=== PATIENT | male | born 1960 | race Caucasian/White ===

== ENCOUNTER → 2020-10-06 | Outpatient (CLI) | payer OTHER ==
--- NOTE | 2020-10-07 05:21 | MR ---
EXAMINATION TYPE: MR shoulder RT wo con DATE OF EXAM: 10/06/2020 COMPARISON: 10/10/2013 HISTORY: Pain in right shoulder Multiplanar multiecho imaging of the right shoulder without contrast. There is severe narrowing of the subacromial joint space. There is retraction of the supraspinatus te ndon. There is very large shoulder joint effusion with septations. There is large subdeltoid effusion . The subscapularis tendon is thickened. There is fluid around the biceps tendon. The glenoid thierno a ppear intact. There is small degenerative cysts in the posterior glenoid. I see no evidence of a frac ture. IMPRESSION: Large rotator cuff tear with full retraction of the supraspinatus tendon. Moderately severe subacromi al joint space narrowing and impingement. Large complex shoulder joint effusion and subdeltoid effusi on. There is significant progression of abnormality compared to old exam. Osteoarthritic changes at t he glenohumeral joint with new subchondral cyst formation in the glenoid compared to old exam.
== END | disposition home or self-care (01) ==
LOC: RADMRIMAIN 13:15
PROVIDERS: ATTEND Orthopaedic Surgery
DX: M75.101 Unspecified rotator cuff tear or rupture of right shoulder, not specified as traumatic (principal); M25.411 Effusion, right shoulder; M85.611 Other cyst of bone, right shoulder

== ENCOUNTER 2022-12-08 14:30 | Inpatient (IN) | payer OTHER ==
[2022-12-08] MEDS ORDERED: SODIUM CHLORIDE 0.9% 1,000 ML IV ONE (15:19)
[2022-12-08 15:24] LABS: Appearance,Urine Clear (Clear); Bilirubin,Urine Negative (Negative); Blood,Urine Negative (Negative); Color,Urine Yellow; Glucose,Urine (UA) Negative (Negative); Ketones,Urine Negative (Negative); Leukocyte Esterase,Urine Negative (Negative); Mucus,Urine Moderate /hpf; Nitrite,Urine Negative (Negative); Protein,Urine 1+ (Negative); RBC,Urine <1 /hpf (0-5); Specific Gravity,Urine 1.036 (1.001-1.035); Squamous Epithelial Cell,Urine <1 /hpf (0-4); Urobilinogen,Urine <2.0 mg/dL (<2.0); WBC,Urine <1 /hpf (0-5)
[2022-12-08 15:43] LABS: Basophils % (A) 0 %; Eosinophils # (A) 0.1 k/uL (0-0.7); Eosinophils % (A) 1 %; HCT 48.6 % (39.0-53.0); HGB 16.4 gm/dL (13.0-17.5); Lymphocytes # (A) 1.3 k/uL (1.0-4.8); Lymphocytes % (A) 14 %; MCH 30.9 pg (25.0-35.0); MCHC 33.7 g/dL (31.0-37.0); MCV 91.8 fL (80.0-100.0); Mean Platelet Volume 8.3; Monocytes # (A) 0.5 k/uL (0-1.0); Monocytes % (A) 5 %; Neutrophils # (A) 7.3 k/uL (1.3-7.7); Neutrophils % (A) 78 %; Platelet Count 270 k/uL (150-450); RDW 14.2 % (11.5-15.5); WBC 9.3 k/uL (3.8-10.6)
[2022-12-08 15:57] LABS: ALT 21 U/L (4-49); African American GFR (CKD) >90 (>60 ml/min/1.73 sqM); Albumin 4.1 g/dL (3.5-5.0); Amylase <30 U/L (30-110); Anion Gap 8 mmol/L; Blood Urea Nitrogen 22 mg/dL (9-20); Calcium 9.3 mg/dL (8.4-10.2); Carbon Dioxide 25 mmol/L (22-30); Chloride 105 mmol/L (98-107); Glucose 102 mg/dL (74-99); Non-African American GFR(CKD) >90 (>60 ml/min/1.73 sqM); Sodium 138 mmol/L (137-145); Total Bilirubin 0.8 mg/dL (0.2-1.3); Total Protein 6.6 g/dL (6.3-8.2)
[2022-12-08 16:09] LABS: Potassium 4.5 mmol/L (3.5-5.1)
[2022-12-08 16:10] LABS: AST 29 U/L (17-59); Alkaline Phosphatase 51 U/L (38-126)
[2022-12-08] MEDS ORDERED: HYDROmorphone 1 MG/ML 1 ML SYRINGE IVP STA ×2 (16:20→17:34)
--- NOTE | 2022-12-08 16:26 | ED ---
General Adult HPI - General Chief complaint: Back Pain/Injury Stated complaint: Back pain Time Seen by Provider: 12/08/22 15:50 Source: patient, family, RN notes reviewed Mode of arrival: ambulatory Limitations: no limitations - History of Present Illness Initial comments: Patient is a pleasant 62-year-old male presenting to the emergency department with concerns with right lower back and flank and abdominal pain. Onset of symptoms was several days ago. Pain increases with movement. Patient has had difficulty getting comfortable. Patient has been using heating pad to the right side of his back. Patient has difficulty urinating secondary to getting comfortable to urinate. Patient denies any incontinence. No bowel incontinence. No leg weakness or loss of sensation. Patient does have history of previous back problems and surgery. - Related Data Home Medications Medication Instructions Recorded Confirmed HYDROcodone/APAP 10-325MG [Cooper 1 tab PO Q6H PRN 03/15/15 05/02/15 10-325] Multivitamin [Men's Multi-Vitamin] 1 each PO DAILY 03/15/15 05/02/15 Previous Rx's Medication Instructions Recorded Dicyclomine [Bentyl] 20 mg PO QID #20 tablet 05/02/15 Ondansetron Odt [Zofran ODT] 4 mg PO Q8HR PRN #15 tab 05/02/15 Allergies Allergy/AdvReac Type Severity Reaction Status Date / Time ciprofloxacin [From Cipro] Allergy Rash/Hives Verified 12/08/22 15:01 ciprofloxacin HCl Allergy Rash/Hives Verified 12/08/22 15:01 [From Cipro] Review of Systems ROS Statement: Those systems with pertinent positive or pertinent negative responses have been documented in the HPI. ROS Other: All systems not noted in ROS Statement are negative. Constitutional: Denies: fever Eyes: Denies: eye pain ENT: Denies: ear pain Respiratory: Denies: cough Cardiovascular: Denies: chest pain Gastrointestinal: Reports: as per HPI Musculoskeletal: Reports: back pain Past Medical History Past Medical History: Musculoskeletal Disorder, Osteoarthritis (OA) Additional Past Medical History / Comment(s): BLOOD IN STOOL-AFTER BM- SOMETIMES JUST BLOOD IN TOILET, RT ROTATOR CUFF TORN IN 3 PLACES-LIMITED ROM, ARTHRITIS IN SHOULDERS & BACK, LOWER BACK PAIN History of Any Multi-Drug Resistant Organisms: None Reported Past Surgical History: Back Surgery Past Anesthesia/Blood Transfusion Reactions: No Reported Reaction Past Psychological History: Anxiety Past Alcohol Use History: None Reported Past Drug Use History: None Reported - Past Family History Mother Family Medical History: Cancer Additional Family Medical History / Comment(s): BREAST CA , HEART SURGERY LAST YEAR Father Additional Family Medical History / Comment(s): BLOOD CLOTS YRS AGO Brother(s) Additional Family Medical History / Comment(s): BACK PROBLEMS General Exam Limitations: no limitations General appearance: alert Head exam: Present: normocephalic Eye exam: Present: normal appearance Neck exam: Present: normal inspection Respiratory exam: Present: normal lung sounds bilaterally Cardiovascular Exam: Present: regular rate, normal rhythm Expanded Peripheral pulses: 2+: Posterior Tibialis (R), Posterior Tibialis (L), Dorsalis Pedis (R), Dorsalis Pedis (L) GI/Abdominal exam: Present: soft, tenderness (Mild tenderness, mostly right lower.). Absent: distended, rebound, rigid, pulsatile mass, hernia Extremities exam: Present: normal inspection Back exam: Absent: tenderness Neurological exam: Present: alert. Absent: motor sensory deficit Psychiatric exam: Present: normal affect, normal mood Skin exam: Present: other (Erythema right lower back were patient states he has had the heating pad. Erythema consistent with first degree burn.) Course Vital Signs 12/08/22 14:57 Temperature 98.2 F Pulse Rate 68 Respiratory 18 Rate Blood Pressure 131/72 O2 Sat by Pulse 97 Oximetry Medical Decision Making - Medical Decision Making Was pt. sent in by a medical professional or institution (, PA, VOLCANOLOGY TEACHER, urgent care, hospital, or halfway...) When possible be specific @ -No Did you speak to anyone other than the patient for history (EMS, parent, family, police, friend...)? What history was obtained from this source @ - provides majority of history and tends to speak for patient. Patient is uncomfortable and agreeable with this. Did you review nursing and triage notes (agree or disagree)? Why? @ -I reviewed and agree with nursing and triage notes Were old charts reviewed (outside hosp., previous admission, EMS record, old EKG, old radiological studies, urgent care reports/EKG's, halfway records)? Report findings @ -Chart reviewed from [facility] earlier this week Differential Diagnosis (chest pain, altered mental status, abdominal pain women, abdominal pain men, vaginal bleeding, weakness, fever, dyspnea, syncope, headache, dizziness, GI bleed, back pain, seizure, CVA, palpatations, mental health, musculoskeletal)? @ -Differential Abdominal Pain Men: Appendicitis, cholecystitis, diverticulosis, ischemic bowel, pancreatitis, hepatitis, UTI, gastroenteritis, AAA, incarcerated hernia, bowel obstruction, constipation, inflammatory bowel, hepatitis, peptic ulcer disease, splenic infarction, perforated viscus, testicular torsion, this is not meant to be an all-inclusive list EKG interpreted by me (3pts min.). @ -As above X-rays interpreted by me (1pt min.). @ -None done CT interpreted by me (1pt min.). @ -Report reviewed U/S interpreted by me (1pt. min.). @ -None done What testing was considered but not performed or refused? (CT, X-rays, U/S, labs)? Why? @ -None What meds were considered but not given or refused? Why? @ -None Did you discuss the management of the patient with other professionals (professionals i.e. , PA, VOLCANOLOGY TEACHER, lab, RT, psych nurse, health and social care teacher, utilization management um nurse, teacher, fire prevention officer, manager case)? Give summary @ -Case was discussed with practitioner jason Zuniga who will admit For hospital call. Was smoking cessation discussed for >3mins.? @ -No Was critical care preformed (if so, how long)? @ -No Were there social determinants of health that impacted care today? How? (Homelessness, low income, unemployed, alcoholism, drug addiction, transpor tation, low edu. Level, literacy, decrease access to med. care, usp, rehab)? @ -No Was there de-escalation of care discussed even if they declined (Discuss DNR or withdrawal of care, Hospice)? DNR status @ -No What co-morbidities impacted this encounter? (DM, HTN, Smoking, COPD, CAD, Cancer, CVA, ARF, Chemo, Hep., AIDS, mental health diagnosis, sleep apnea, morbid obesity)? @ -None Was patient admitted / discharged? Hospital course, mention meds given and route, prescriptions, significant lab abnormalities, going to OR and other pertinent info. @ -Patient reevaluated and still comfortable. Patient and family updated on results and plan. Patient will be provided Horvath catheter to see if this helps with his discomfort. Patient will benefit with consults with surgery and orthopedics. Undiagnosed new problem with uncertain prognosis? @ -No Drug Therapy requiring intensive monitoring for toxicity (Heparin, Nitro, Insulin, Cardizem)? @ -No Were any procedures done? @ -No Diagnosis/symptom? @ -Back pain, abdominal pain Acute, or Chronic, or Acute on Chronic? @ -Acute, acute Uncomplicated (without systemic symptoms) or Complicated (systemic symptoms)? @ -default Side effects of treatment? @ -No Exacerbation, Progression, or Severe Exacerbation? @ -No Poses a threat to life or bodily function? How? (Chest pain, [place], [place], pneumonia, PE, COPD, DKA, ARF, appy, cholecystitis, CVA, Diverticulitis, Homicidal, Suicidal, threat to staff... and all critical care pts) @ -No - Lab Data Result diagrams: 12/08/22 15:19 12/08/22 15:19 Lab Results 12/08/22 12/08/22 12/08/22 Range/Units 15:04 15:19 15:19 WBC 9.3 (3.8-10.6) k/uL RBC 5.30 (4.30-5.90) m/uL Hgb 16.4 (13.0-17.5) gm/dL Hct 48.6 (39.0-53.0) % MCV 91.8 (80.0-100.0) fL MCH 30.9 (25.0-35.0) pg MCHC 33.7 (31.0-37.0) g/dL RDW 14.2 (11.5-15.5) % Plt Count 270 (150-450) k/uL MPV 8.3 Neutrophils % 78 % Lymphocytes % 14 % Monocytes % 5 % Eosinophils % 1 % Basophils % 0 % Neutrophils # 7.3 (1.3-7.7) k/uL Lymphocytes # 1.3 (1.0-4.8) k/uL Monocytes # 0.5 (0-1.0) k/uL Eosinophils # 0.1 (0-0.7) k/uL Basophils # 0.0 (0-0.2) k/uL Sodium 138 (137-145) mmol/L Potassium 4.5 (3.5-5.1) mmol/L Chloride 105 (98-107) mmol/L Carbon Dioxide 25 (22-30) mmol/L Anion Gap 8 mmol/L BUN 22 H (9-20) mg/dL Creatinine 0.70 (0.66-1.25) mg/dL Est GFR (CKD-EPI)AfAm >90 (>60 ml/min/1.73 sqM) Est GFR (CKD-EPI)NonAf >90 (>60 ml/min/1.73 sqM) Glucose 102 H (74-99) mg/dL Plasma Lactic Acid Raymond (0.7-2.0) mmol/L Calcium 9.3 (8.4-10.2) mg/dL Total Bilirubin 0.8 (0.2-1.3) mg/dL AST 29 (17-59) U/L ALT 21 (4-49) U/L Alkaline Phosphatase 51 (38-126) U/L Total Protein 6.6 (6.3-8.2) g/dL Albumin 4.1 (3.5-5.0) g/dL Amylase <30 L (30-110) U/L Urine Color Yellow Urine Appearance Clear (Clear) Urine pH 6.0 (5.0-8.0) Ur Specific [place] 1.036 H (1.001-1.035) Urine Protein 1+ H (Negative) Urine Glucose (UA) Negative (Negative) Urine Ketones Negative (Negative) Urine Blood Negative (Negative) Urine Nitrite Negative (Negative) Urine Bilirubin Negative (Negative) Urine Urobilinogen <2.0 (<2.0) mg/dL Ur Leukocyte Esterase Negative (Negative) Urine RBC <1 (0-5) /hpf Urine WBC <1 (0-5) /hpf Ur Squamous Epith Cells <1 (0-4) /hpf Urine Mucus Moderate H (None) /hpf 12/08/22 Range/Units 15:19 WBC (3.8-10.6) k/uL RBC (4.30-5.90) m/uL Hgb (13.0-17.5) gm/dL Hct (39.0-53.0) % MCV (80.0-100.0) fL MCH (25.0-35.0) pg MCHC (31.0-37.0) g/dL RDW (11.5-15.5) % Plt Count (150-450) k/uL MPV Neutrophils % % Lymphocytes % % Monocytes % % Eosinophils % % Basophils % % Neutrophils # (1.3-7.7) k/uL Lymphocytes # (1.0-4.8) k/uL Monocytes # (0-1.0) k/uL Eosinophils # (0-0.7) k/uL Basophils # (0-0.2) k/uL Sodium (137-145) mmol/L Potassium (3.5-5.1) mmol/L Chloride (98-107) mmol/L Carbon Dioxide (22-30) mmol/L Anion Gap mmol/L BUN (9-20) mg/dL Creatinine (0.66-1.25) mg/dL Est GFR (CKD-EPI)AfAm (>60 ml/min/1.73 sqM) Est GFR (CKD-EPI)NonAf (>60 ml/min/1.73 sqM) Glucose (74-99) mg/dL Plasma Lactic Acid Raymond 1.4 (0.7-2.0) mmol/L Calcium (8.4-10.2) mg/dL Total Bilirubin (0.2-1.3) mg/dL AST (17-59) U/L ALT (4-49) U/L Alkaline Phosphatase (38-126) U/L Total Protein (6.3-8.2) g/dL Albumin (3.5-5.0) g/dL Amylase (30-110) U/L Urine Color Urine Appearance (Clear) Urine pH (5.0-8.0) Ur Specific [place] (1.001-1.035) Urine Protein (Negative) Urine Glucose (UA) (Negative) Urine Ketones (Negative) Urine Blood (Negative) Urine Nitrite (Negative) Urine Bilirubin (Negative) Urine Urobilinogen (<2.0) mg/dL Ur Leukocyte Esterase (Negative) Urine RBC (0-5) /hpf Urine WBC (0-5) /hpf Ur Squamous Epith Cells (0-4) /hpf Urine Mucus (None) /hpf Disposition Clinical Impression: Back pain, Abdominal pain Disposition: ADMITTED IP TO THIS [facility] Is patient prescribed a controlled substance at d/c from ED?: No Referrals: None,Stated [Primary Care Provider] - 1-2 days Time of Disposition: 17:29
--- NOTE | 2022-12-08 17:19 | CT ---
EXAMINATION TYPE: CT abdomen pelvis w con DATE OF EXAM: 12/08/2022 COMPARISON: NONE HISTORY: 62-year-old male RLQ pain and right flank pain x1 month TECHNIQUE: Contiguous axial scanning of the abdomen and pelvis following administration of 100 ml Iso kristie 300 IV contrast. Delayed images through the kidneys and coronal/sagittal reconstructions perform ed. CT DLP: 1313.6 mGycm Automated exposure control for dose reduction was used. FINDINGS: The heart is normal size without pericardial effusion. Lung bases clear without pleural eff usion. Liver mildly enlarged at 18.4 cm. Portal venous system is patent. No biliary ductal dilatation. Hydropic gallbladder at 5.0 cm wide but without any surrounding inflammation. Probably due to fasting state. No dilated small bowel, free fluid, or free air. Tiny fatty umbilical hernia. A 2.1 cm subcutaneous lesion just deep to the skin surface along the anterior right lower quadrant ca n be correlated with physical exam findings. Possibly related to subcutaneous injections. Normal appendix. There is mild to moderate stool burden. There seems to be some circumferential wall thickening along the sigmoid colon but without any surrou nding fat stranding. Adrenal glands, kidneys, spleen, and pancreas within normal. No mesenteric or retroperitoneal lymphadenopathy. Prominent distention of the urinary bladder. Prostate gland enlarged at 5.6 cm wide. Some central calcifications are noted. Right-sided pelvic phl ebolith. No abnormal fluid collection in the pelvis or pelvic lymphadenopathy. Bones: Advanced degenerative disc disease lumbar spine. Hypertrophic facet arthropathy mid to lower l umbar spine. A 1.3 cm calcification located in the subcutaneous adipose layer just anterior to the right iliac cre st, axial image 73, probably sequela of prior injury. IMPRESSION: 1. A 1.3 CM CALCIFICATION IN THE SUBCUTANEOUS FAT LAYER JUST ANTERIOR TO THE RIGHT ILIAC CREST. PROBA ARGENIS HETEROTOPIC OSSIFICATION A SEQUELA OF PRIOR INFLAMMATION. CORRELATE FOR ANY POINT TENDERNESS H ERE. 2. ADDITIONAL 2.1 CM SUBCUTANEOUS LESION ANTERIOR RIGHT LOWER QUADRANT JUST DEEP TO THE SKIN SURFACE MAY RELATE TO PREVIOUS SUBCUTANEOUS INJECTION. AGAIN, CORRELATE WITH PHYSICAL EXAM FINDINGS. 3. MILD CIRCUMFERENTIAL WALL THICKENING INVOLVING THE SIGMOID COLON. CONSIDER A NONSPECIFIC MILD INFE CTIOUS OR INFLAMMATORY COLITIS. 4. HYDROPIC GALLBLADDER LIKELY DUE TO FASTING STATE. NO ASSOCIATED INFLAMMATION. 5. NORMAL APPENDIX. NO NEPHROLITHIASIS OR HYDRONEPHROSIS.
[2022-12-08] MEDS ORDERED: HYDROmorphone 0.5 MG/0.5 ML SYRINGE IVP PRN (17:35)
[2022-12-08] MEDS ORDERED: NALOXONE 0.4 MG/ML 1 ML VIAL IV PRN (17:35)
[2022-12-08] MEDS: SODIUM CHLORIDE 0.9% 1,000 ML IV SCH (17:53)
[2022-12-08] MEDS: HYDROmorphone 1 MG/ML 1 ML SYRINGE IVP PRN ×2 (21:00→23:49)
[2022-12-09] MEDS: SODIUM CHLORIDE 0.9% 1,000 ML IV SCH ×2 (01:43→12:41)
[2022-12-09] MEDS: HYDROmorphone 1 MG/ML 1 ML SYRINGE IVP PRN ×3 (03:02→08:53)
[2022-12-09] MEDS: MELATONIN 5 MG TABLET PO PRN ×2 (03:05→23:01)
[2022-12-09 08:57] LABS: Basophils # (A) 0.02 X 10*3/uL (0.00-0.10); Basophils % (A) 0.2 %; Eosinophils # (A) 0.23 X 10*3/uL (0.04-0.35); Eosinophils % (A) 2.7 %; HCT 44.8 % (39.6-50.0); HGB 15.2 d/dL (13.0-17.0); Lymphocytes # (A) 2.54 X 10*3/uL (0.90-5.00); Lymphocytes % (A) 29.4 %; MCH 30.3 pg (27.0-32.0); MCHC 33.9 d/dL (32.0-37.0); MCV 89.2 FL (80.0-97.0); Mean Platelet Volume 10.5 FL (9.5-12.2); Monocytes # (A) 0.69 X 10*3/uL (0.20-1.00); NRBC Per 100 WBC 0 X 10*3/uL (0.00-0.01); Neutrophils # (A) 5.15 X 10*3/uL (1.80-7.70); Neutrophils % (A) 59.6 %; Platelet Count 282 X 10*3/uL (140-440); RBC 5.02 X 10*6/uL (4.40-5.60); RDW 14.2 % (11.5-14.5); WBC 8.64 X 10*3/uL (4.50-10.00)
[2022-12-09 09:27] LABS: ALT 17 U/L (10-49); AST 15 U/L (14-35); Albumin 3.9 d/dL (3.8-4.9); Albumin/Globulin Ratio 2.05 Ratio (1.60-3.17); Alkaline Phosphatase 62 U/L (41-126); BUN/Creat Ratio 22.14 Ratio (12.00-20.00); Blood Urea Nitrogen 15.5 mg/dL (9.0-27.0); Calcium 9.2 mg/dL (8.7-10.3); Carbon Dioxide 24.4 mmol/L (21.6-31.8); Chloride 104 mmol/L (96-109); Globulin 1.9 d/dL (1.6-3.3); Glucose 82 mg/dL (70-110); Potassium 4.2 mmol/L (3.5-5.5); Sodium 140 mmol/L (135-145); Total Bilirubin 0.4 mg/dL (0.3-1.2); Total Protein 5.8 d/dL (6.2-8.2)
--- NOTE | 2022-12-09 10:50 | P.GSCN ---
History of Present Illness Consult date: 12/09/22 Reason for Consult: Colitis History of present illness: 62-year-old male admitted with complaints of back pain. Patient states that he was shoveling about 2 weeks ago and developed sudden back pain. Seemed to be gradually improving however he then lifted something off of the stairs one week ago and has been having significant pain since then. He went to the ER at [facility] one week ago. He apparently has surgical history with Dr. Castillo. They have been asked is to see him. He was having some mild right-sided abdominal swelling he describes. It has improved. He feels a small nodule in the abdominal wall fat its been there for the last 10 years or so that is unchanged right lower quadrant. He had a CAT scan performed showing a mildly distended gallbladder as well as mild thickening of the colon wall which is n onspecific. No rectal bleeding or melena. Having normal bowel movements. White blood cell count and hemoglobin normal. Review of Systems The patient denies any acute changes in vision or hearing, no dysphagia or odynophagia, no chest pain or shortness of breath, no dysuria or hematuria, no headache, no runny nose, no rectal bleeding or melena, no unexplained weight l oss Past Medical History Past Medical History: Musculoskeletal Disorder, Osteoarthritis (OA) Additional Past Medical History / Comment(s): BLOOD IN STOOL-AFTER BM- SOMETIMES JUST BLOOD IN TOILET, RT ROTATOR CUFF TORN IN 3 PLACES-LIMITED ROM, ARTHRITIS IN SHOULDERS & BACK, LOWER BACK PAIN, DDD, bone spurs in spine History of Any Multi-Drug Resistant Organisms: None Reported Past Surgical History: Back Surgery Additional Past Surgical History / Comment(s): hand surgery Past Anesthesia/Blood Transfusion Reactions: No Reported Reaction Past Psychological History: Anxiety Smoking Status: Never smoker Past Alcohol Use History: None Reported Additional Past Alcohol Use History / Comment(s): IS SMOKER AND IS TRYING TO QUIT Past Drug Use History: None Reported - Past Family History Mother Family Medical History: Cancer Additional Family Medical History / Comment(s): BREAST CA , HEART SURGERY LAST YEAR Father Additional Family Medical History / Comment(s): BLOOD CLOTS YRS AGO Brother(s) Additional Family Medical History / Comment(s): BACK PROBLEMS Medications and Allergies Home Medications Medication Instructions Recorded Confirmed Type Meloxicam [Mobic] 15 mg PO DAILY 12/08/22 12/08/22 History Testosterone Cypionate 200 mg IM Q14D 12/08/22 12/08/22 History [Depo-Testosterone] Allergies Allergy/AdvReac Type Severity Reaction Status Date / Time ciprofloxacin [From Cipro] Allergy Rash/Hives Verified 12/08/22 17:58 ciprofloxacin HCl Allergy Rash/Hives Verified 12/08/22 17:58 [From Cipro] Surgical - Exam Vital Signs Temp Pulse Resp BP Pulse Ox 98.2 F 68 18 131/72 97 12/08/22 14:57 12/08/22 14:57 12/08/22 14:57 12/08/22 14:57 12/08/22 14:57 Physical exam: General: Well-developed, well-nourished HEENT: Normocephalic, sclerae nonicteric Abdomen: Nontender, nondistended Extremities: No edema Neuro: Alert and oriented Results - Labs 12/09/22 05:21 12/09/22 05:21 Abnormal Lab Results - Last 24 Hours (Table) 12/08/22 12/08/22 12/09/22 Range/Units 15:04 15:19 05:21 BUN 22 H (9-20) mg/dL BUN/Creatinine Ratio 22.14 H (12.00-20.00) Ratio Glucose 102 H (74-99) mg/dL Total Protein 5.8 L (6.2-8.2) d/dL Amylase <30 L (30-110) U/L Ur Specific [place] 1.036 H (1.001-1.035) Urine Protein 1+ H (Negative) Urine Mucus Moderate H (None) /hpf Diabetes panel 12/08/22 12/09/22 Range/Units 15:19 05:21 Sodium 138 140 (137-145) mmol/L Potassium 4.5 4.2 (3.5-5.1) mmol/L Chloride 105 104 (98-107) mmol/L Carbon Dioxide 25 24.4 (22-30) mmol/L BUN 22 H 15.5 (9-20) mg/dL Creatinine 0.70 0.7 (0.66-1.25) mg/dL Glucose 102 H 82 (74-99) mg/dL Calcium 9.3 9.2 (8.4-10.2) mg/dL AST 29 15 (17-59) U/L ALT 21 17 (4-49) U/L Alkaline Phosphatase 51 62 (38-126) U/L Total Protein 6.6 5.8 L (6.3-8.2) g/dL Albumin 4.1 3.9 (3.5-5.0) g/dL Calcium panel 12/08/22 12/09/22 Range/Units 15:19 05:21 Calcium 9.3 9.2 (8.4-10.2) mg/dL Albumin 4.1 3.9 (3.5-5.0) g/dL Pituitary panel 12/08/22 12/09/22 Range/Units 15:19 05:21 Sodium 138 140 (137-145) mmol/L Potassium 4.5 4.2 (3.5-5.1) mmol/L Chloride 105 104 (98-107) mmol/L Carbon Dioxide 25 24.4 (22-30) mmol/L BUN 22 H 15.5 (9-20) mg/dL Creatinine 0.70 0.7 (0.66-1.25) mg/dL Glucose 102 H 82 (74-99) mg/dL Calcium 9.3 9.2 (8.4-10.2) mg/dL Adrenal panel 12/08/22 12/09/22 Range/Units 15:19 05:21 Sodium 138 140 (137-145) mmol/L Potassium 4.5 4.2 (3.5-5.1) mmol/L Chloride 105 104 (98-107) mmol/L Carbon Dioxide 25 24.4 (22-30) mmol/L BUN 22 H 15.5 (9-20) mg/dL Creatinine 0.70 0.7 (0.66-1.25) mg/dL Glucose 102 H 82 (74-99) mg/dL Calcium 9.3 9.2 (8.4-10.2) mg/dL Total Bilirubin 0.8 0.4 (0.2-1.3) mg/dL AST 29 15 (17-59) U/L ALT 21 17 (4-49) U/L Alkaline Phosphatase 51 62 (38-126) U/L Total Protein 6.6 5.8 L (6.3-8.2) g/dL Albumin 4.1 3.9 (3.5-5.0) g/dL Assessment and Plan (1) Abdominal pain Narrative/Plan: 62-year-old male with abdominal discomfort. This seems to be radiating from the back pain. This is improved at this time. CAT scan reviewed. No further surgical plans at this time. We'll discuss further with the patient regarding timing of his last colonoscopy. Await orthospine evaluation. Current Visit: Yes Status: Acute Code(s): R10.9 - UNSPECIFIED ABDOMINAL PAIN SNOMED Code(s): 50618352
--- NOTE | 2022-12-09 11:32 | P.PN ---
Progress Note - Text Progress Note Date: 12/09/22 Dr. Roche was consulted due to low back pain. Patient was seen at bedside this morning and states that he is a patient of Dr. Castillo's. Patient states that Dr. Castillo performed surgery on his back in 2009. Patient thinks at L4 due to a herniated disc. We have consulted Dr. Castillo for further care.
[2022-12-09] MEDS: KETOROLAC 15 MG/ML 1 ML VIAL IVP PRN ×2 (11:49→18:06)
[2022-12-09] MEDS: HYDROcodone/APAP 5-325MG 1 EACH TAB PO PRN ×2 (13:05→19:37)
[2022-12-09] MEDS: predniSONE 20 MG TAB PO SCH (13:19)
[2022-12-09] MEDS: SENNOSIDES 8.6 MG TAB PO SCH ×2 (13:19→19:38)
--- NOTE | 2022-12-09 13:51 | P.CNOR ---
History of Present Illness - [facility] Consult date: 12/09/22 Consult reason: low back pain History of present illness: Patient is a 62-year-old male who presents to the emergency room due to low back pain radiating around his leg toward his abdomen. Patient says that the pain has been worsening over the past week to the point he is unable to move and get out of bed. Apparently about a week and a half ago the patient was shoveling some dirt and strain and hurt his back. He is having pain and then several days later he was carrying heavy tools up some stairs and had felt like his back went out. Since then he has been unable to move around well and presented to the emergency room yesterday. Patient says the pain is around his right sided lower back radiates around towards his flank. He denies any nausea vomiting. He denies any weakness in his lower extremity is. He denies any numbness tingling or burning in his legs. He says his legs are doing fine. He denies any changes in bowel bladder function. He denies any fevers or chills. He denies any changes in his urine. Over 10 years ago we had seen him in regards to his low back pain and lower extremity pain. At a point he had been found have a disc herniation with stenosis and radiculopathy. He underwent laminectomy discectomy and says that he did very well over the past decade. Review of Systems As stated per HPI. He denies any radiculopathy or numbness tingling in his lower extremity. Denies any weakness in his lower extremities. Denies a change in bowel bladder function. He says he can't get up and move around because his back hurts too much. He denies any chest pain short of breath. Denies nausea or vomiting or fevers. Past Medical History Past Medical History: Musculoskeletal Disorder, Osteoarthritis (OA) Additional Past Medical History / Comment(s): BLOOD IN STOOL-AFTER BM- SOMETIMES JUST BLOOD IN TOILET, RT ROTATOR CUFF TORN IN 3 PLACES-LIMITED ROM, ARTHRITIS IN SHOULDERS & BACK, LOWER BACK PAIN, DDD, bone spurs in spine, history of laminectomy decompression L4 5 about 10 years ago History of Any Multi-Drug Resistant Organisms: None Reported Past Surgical History: Back Surgery Additional Past Surgical History / Comment(s): hand surgery Past Anesthesia/Blood Transfusion Reactions: No Reported Reaction Past Psychological History: Anxiety Smoking Status: Never smoker Past Alcohol Use History: None Reported Additional Past Alcohol Use History / Comment(s): IS SMOKER AND IS TRYING TO QUIT Past Drug Use History: None Reported - Past Family History Mother Family Medical History: Cancer Additional Family Medical History / Comment(s): BREAST CA , HEART SURGERY LAST YEAR Father Additional Family Medical History / Comment(s): BLOOD CLOTS YRS AGO Brother(s) Additional Family Medical History / Comment(s): BACK PROBLEMS Medications and Allergies Home Medications Medication Instructions Recorded Confirmed Type Meloxicam [Mobic] 15 mg PO DAILY 12/08/22 12/08/22 History Testosterone Cypionate 200 mg IM Q14D 12/08/22 12/08/22 History [Depo-Testosterone] Allergies Allergy/AdvReac Type Severity Reaction Status Date / Time ciprofloxacin [From Cipro] Allergy Rash/Hives Verified 12/08/22 17:58 ciprofloxacin HCl Allergy Rash/Hives Verified 12/08/22 17:58 [From Cipro] Physical Examination Osteopathic Statement: *. No significant issues noted on an osteopathic structural exam other than those noted in the History and Physical/Consult. - L Spine: dermatomal strength & reflexes right Strength: hip flexion: 5/5 (His bilateral lower extremities have 5 out of 5 strength dorsal flexion plantarflexion and EHL. He can lift his legs up off the bed independently. No pain at his hips with rotation flexion extension.) Strength: hip extension: 5/5 (Lower extremity sensory intact. No saddle paresthesias) Strength: knee flexion: 5/5 (At his back he has a well-healed midline incision. There is no erythema there is no swelling) Results - Labs Labs: Abnormal Lab Results - Last 24 Hours (Table) 12/08/22 12/08/22 12/09/22 Range/Units 15:04 15:19 05:21 BUN 22 H (9-20) mg/dL BUN/Creatinine Ratio 22.14 H (12.00-20.00) Ratio Glucose 102 H (74-99) mg/dL Total Protein 5.8 L (6.2-8.2) d/dL Amylase <30 L (30-110) U/L Ur Specific [place] 1.036 H (1.001-1.035) Urine Protein 1+ H (Negative) Urine Mucus Moderate H (None) /hpf H & H 12/08/22 12/09/22 Range/Units 15:19 05:21 Hgb 16.4 15.2 (13.0-17.5) gm/dL Hct 48.6 44.8 (39.0-53.0) % Result Diagrams: 12/09/22 05:21 12/09/22 05:21 - Diagnostic results CT Scan - lumbar: report reviewed, image reviewed (Chest abdomen and pelvis CT scans reviewed in terms of his lumbar spine. He has disc degeneration L3 4 L4 5 L5-S1. There seems to be prior laminectomy L4 5. There is some callus condition of disc. There is no acute fracture. There is no obvious instability) Assessment and Plan Assessment: Acute low back pain with myofascial strain possible annular fissure No evidence of radiculopathy or lower extremity neurologic change Low back pain with radiation towards his right flank and abdomen History of laminectomy over 10 years ago L4 5 with good result Plan: Acute low back pain with myofascial strain possible annular fissure No evidence of radiculopathy or lower extremity neurologic change Low back pain with radiation towards his right flank and abdomen History of laminectomy over 10 years ago L4 5 with good result The patient has new acute symptoms over the past week with his low back radiating pain towards the right flank and abdomen. The workup did not show any obvious issues at his abdomen per surgery nor does report show any evidence of kidney stones. The patient has significant degenerative changes at his low back L4 5 where he had prior surgery. He is not having any radiculopathy or neurologic change in his lower extremities. I do not see any evidence of instability at his back or fracture. Patient may have a new annular fissure causing him the severe pain over this past week. He is having great difficulty with any sort of mobilization and I t hink that he can have improvement with dedicated conservative treatment. I would like to see if he can mobilize better with physical therapy. He has a Horvath catheter in place which we will discontinue. I think that he can do well with course of steroid medication and with started on oral steroids 60 mg daily which can be tapered down to a 40 and then 20 over the next couple of weeks. He has been prescribed muscle relaxer and pain medication which is appropriate. I think that he could have some benefit with interventional pain management. He could consider trigger point injections, epidural steroid injections or facet injections as necessary and we will consult them as well. I discussed this with how staff and answered the patient's questions to best my ability. I think it is okay for him to mobilize from a orthopedic spine standpoint. If he is continuing to have severe issues we may have to get further imaging or reassessment with surgery.
[2022-12-09] MEDS: CYCLOBENZAPRINE 5 MG TAB PO PRN (18:03)
--- NOTE | 2022-12-09 18:36 | P.HPIM ---
History of Present Illness H&P Date: 12/09/22 This is a pleasant 62-year-old male who presented to the emergency department with severe back pain along with abdominal pain. Patient does not have a primary care provider and reports as a past medical history of musculoskeletal disorder with osteoarthritis, anxiety with a past medical history of laminectomy with decompression of L4-[address] Castillo about 10 years ago. Patient also reports to degenerative disc disease. Patient denies smoking and denies alcohol use and denies any illicit drug use. Patient reports he was having significant back pain that has progressively gotten worse making it difficult to ambulate. Patient reports he was shoveling a few weeks prior and also had recently been lifting heavy objects and the pain intensified. Patient reports he was at [facility] last week and received imaging and was sent home. Patient continued to have pain that had worsened and now reports unable to walk. Patient also reports difficulty with urinating due to the pain. Patient denies any loss of bowel or bladder incontinence. Patient also was having some abdominal pain most likely radiating from the back pain. Patient was admitted with orthopedic consultation as well as general surgery consultation. I have reviewed and within normal limits. Review Of Systems: Constitutional: No fever, no chills, no night sweats. No weight change. No weakness, fatigue or lethargy. No daytime sleepiness. EENT: No headache. No blurred vision or double vision, no loss of vision. No loss of Hearing, no ringing in the ears, no dizziness. No nasal drainage or congestion. No epistaxis. No sore throat. Lungs: No shortness of breath, cough, no sputum production. No wheezing. Cardiovascular: No chest pain, no lower extremity edema. No palpitations. No paroxysmal nocturnal dyspnea. No orthopnea. No lightheadedness or dizziness. No syncopal episodes. Abdominal: Reported abdominal pain that has resolved. No nausea, vomiting. No diarrhea. No constipation. No bloody or tarry stools.. No loss of appetite. Genitourinary: No dysuria, increased frequency, urgency. No urinary retention. Reported difficulty with urination due to significant back pain and difficulty getting comfortable Musculoskeletal: No myalgias. No muscle weakness, no gait dysfunction, no isabel quent falls. No back pain. No neck pain. Integumentary: No wounds, no lesions. No rash or pruritus. No unusual bruising. No change in hair or nails. Neurologic: No aphasia. No facial droop. No change in mentation. No head injury. No headache. No paralysis. No paresthesia. Psychiatric: No depression. No anxiety. No mood swings. Endocrine: No abnormal blood sugars. No weight change. No excessive sweating or thirst. No cold intolerance. PHYSICAL EXAMINATION: GENERAL: The patient is alert and oriented x4, Well developed, well nourished. Obese HEENT: Pupils are round and equally reacting to light. EOMI. no scleral icterus. No conjunctival pallor. Normocephalic, atraumatic. No pharyngeal erythema. No thyromegaly. CARDIOVASCULAR: S1 and S2 muffled PULMONARY: Breath sounds clear bilaterally to auscultation with no wheezing or rhonchi noted. ABDOMEN: soft. Nontender on exam. non-distended, normoactive bowel sounds. No palpable organomegaly. MUSCULOSKELETAL: No joint swelling or deformity. Significant pain in the lower back on palpation EXTREMITIES: No cyanosis, clubbing, or pedal edema. NEUROLOGICAL: Gross neurological examination did not reveal any focal deficits. Diffuse weakness SKIN: No rashes. Assessment: Acute lower back pain possibly secondary to muscle straining exacerbated by shoveling and lifting heavy objects History of degenerative disc disease History of osteoarthritis History of laminectomy of L4-5 approximately 10 years ago Abdominal pain, likely secondary to pain radiating from his back pain, denies nausea vomiting or diarrhea Obesity with a BMI of 30.1 GI prophylaxis DVT prophylaxis Full code Plan: Patient be seen and evaluated by orthopedics along with general surgery. General surgery Dr. 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 CT images were r eviewed by surgery recommending no surgical intervention and patient being started on diet. Dr. Castillo evaluated the patient as he has past medical history of laminectomy of L4-5 over 10 years ago. No plans for surgical intervention at this time and patient being started on steroid taper along with pain management and patient will be evaluated by pain management provider Patient had indwelling Horvath catheter placed in the ER which will remove and monitor for any retention. PT/OT therapy consulted for evaluation Encouraged increased activity as tolerated Encouraged oral intake Continue with pain management and adjust the medications and limit the use of IV narcotics. Per nursing staff patient has been requesting IV Dilaudid [id number]. Continue GI and DVT prophylaxis The impression and plan of care has been dictated by Laura Mckeon, nurse practitioner as directed. Dr. Yohannes MD I have performed a history and examination and MDM of this patient, discussed th e with the dictator, and agree with the dictator's assessment and plan as written ,documented as a scribe. Based on total visit time, I have performed more than 50% of the visit. Any additional findings or plans will be noted. Past Medical History Past Medical History: Musculoskeletal Disorder, Osteoarthritis (OA) Additional Past Medical History / Comment(s): BLOOD IN STOOL-AFTER BM- SOMETIMES JUST BLOOD IN TOILET, RT ROTATOR CUFF TORN IN 3 PLACES-LIMITED ROM, ARTHRITIS IN SHOULDERS & BACK, LOWER BACK PAIN, DDD, bone spurs in spine History of Any Multi-Drug Resistant Organisms: None Reported Past Surgical History: Back Surgery Additional Past Surgical History / Comment(s): hand surgery Past Anesthesia/Blood Transfusion Reactions: No Reported Reaction Past Psychological History: Anxiety Smoking Status: Never smoker Past Alcohol Use History: None Reported Additional Past Alcohol Use History / Comment(s): IS SMOKER AND IS TRYING TO QUIT Past Drug Use History: None Reported - Past Family History Mother Family Medical History: Cancer Additional Family Medical History / Comment(s): BREAST CA , HEART SURGERY LAST YEAR Father Additional Family Medical History / Comment(s): BLOOD CLOTS YRS AGO Brother(s) Additional Family Medical History / Comment(s): BACK PROBLEMS Medications and Allergies Home Medications Medication Instructions Recorded Confirmed Type Meloxicam [Mobic] 15 mg PO DAILY 12/08/22 12/08/22 History Testosterone Cypionate 200 mg IM Q14D 12/08/22 12/08/22 History [Depo-Testosterone] Allergies Allergy/AdvReac Type Severity Reaction Status Date / Time ciprofloxacin [From Cipro] Allergy Rash/Hives Verified 12/08/22 17:58 ciprofloxacin HCl Allergy Rash/Hives Verified 12/08/22 17:58 [From Cipro] Physical Exam Vitals: Vital Signs Temp Pulse Pulse Resp BP BP Pulse Ox 12/09/22 07:00 97.7 F 54 L 18 140/77 95 12/09/22 02:00 97.5 F L 56 L 16 132/75 98 12/08/22 19:15 97.8 F 57 L 16 134/82 97 12/08/22 18:14 98.3 F 61 18 127/83 97 12/08/22 14:57 98.2 F 68 18 131/72 97 Intake and Output 12/08/22 12/09/22 12/09/22 22:59 06:59 14:59 Output Total 550 725 Balance -550 -725 Output: Urine 550 725 Uretheral (Horvath) 550 Other: Voiding Method Indwelling Catheter Indwelling Catheter # Voids 0 Weight 95.254 kg Results CBC & Chem 7: 12/09/22 05:21 12/09/22 05:21 Labs: Abnormal Lab Results - Last 24 Hours (Table) 12/08/22 12/08/22 12/09/22 Range/Units 15:04 15:19 05:21 BUN 22 H (9-20) mg/dL BUN/Creatinine Ratio 22.14 H (12.00-20.00) Ratio Glucose 102 H (74-99) mg/dL Total Protein 5.8 L (6.2-8.2) d/dL Amylase <30 L (30-110) U/L Ur Specific [place] 1.036 H (1.001-1.035) Urine Protein 1+ H (Negative) Urine Mucus Moderate H (None) /hpf Thrombosis Risk Factor Assmnt - DVT/VTE Prophylaxis DVT/VTE Prophylaxis: Pharmacologic Prophylaxis ordered - Choose All That Apply Any of the Below Risk Factors Present?: Yes Each Factor Represents 1 point: Age 41-60 years, Medical pt on bed rest, Obesity (BMI >25) Other Risk Factors: No Other congenital or acquired thrombophilia - If yes, enter type in comment: No Thrombosis Risk Factor Assessment Total Risk Factor Score: 3 Thrombosis Risk Factor Assessment Level: Moderate Risk Assessment and Plan Time with Patient: Greater than 30
[2022-12-09] MEDS: FAMOTIDINE 20 MG TAB PO SCH (19:38)
[2022-12-10] MEDS: KETOROLAC 15 MG/ML 1 ML VIAL IVP PRN ×2 (00:01→10:33)
[2022-12-10] MEDS: SODIUM CHLORIDE 0.9% 1,000 ML IV SCH ×2 (00:15→18:49)
[2022-12-10] MEDS ORDERED: ALPRAZolam 0.5 MG TAB PO STA (00:41)
[2022-12-10] MEDS: HYDROcodone/APAP 5-325MG 1 EACH TAB PO PRN ×3 (02:44→16:51)
[2022-12-10] MEDS: predniSONE 20 MG TAB PO SCH (08:33)
[2022-12-10] MEDS: FAMOTIDINE 20 MG TAB PO SCH ×2 (08:34→20:55)
[2022-12-10] MEDS: SENNOSIDES 8.6 MG TAB PO SCH ×2 (08:34→20:55)
[2022-12-10] MEDS: ENOXAPARIN 40 MG/0.4 ML SYRINGE SQ SCH (08:34)
--- NOTE | 2022-12-10 11:18 | P.PN ---
Subjective Progress Note Date: 12/10/22 Principal diagnosis: Abdominal pain Patient seems to be doing somewhat better. He is ambulate. Still having back pain. Still describes pain right flank and back region. No nausea or vomiting. Tolerating diet. No diarrhea. Patient again states the symptoms started after lifting heavy object while walking upstairs. Objective - Vital Signs Vital signs: Vital Signs Temp 98.1 F 12/10/22 07:00 Pulse 60 12/10/22 07:00 Resp 18 12/10/22 07:00 BP 138/75 12/10/22 07:00 Pulse Ox 95 12/10/22 07:00 FiO2 Intake & Output 12/09/22 12/10/22 12/10/22 18:59 06:59 18:59 Intake Total 360 Output Total 1400 Balance -1040 Intake: Oral 360 Output: Urine 1400 Other: Voiding Method Indwelling Catheter Urinal Urinal # Voids 0 500 - Exam Abdomen: Soft, nontender, nondistended - Labs CBC & Chem 7: 12/09/22 05:21 12/09/22 05:21 Assessment and Plan (1) Abdominal pain Narrative/Plan: 8-year-old male with back pain exacerbated by lifting. Suspect musculoskeletal strain or aggravation of chronic back pain issues. Patient's gallbladder slightly distended on recent CAT scan but has no tenderness in the right upper quadrant symptoms seem to be more in the flank region. Symptoms aggravated during this hospital stay with getting out of bed and walking. Currently doubt gall that her pathology as a source of his symptoms. For completeness sake will order a gallbladder ultrasound. Will follow. Current Visit: Yes Status: Acute Code(s): R10.9 - UNSPECIFIED ABDOMINAL PAIN SNOMED Code(s): 60479364
--- NOTE | 2022-12-10 12:06 | P.PN ---
Progress Note - Text Progress Note Date: 12/10/22 The patient is seen and examined at bedside. He moves slightly better today but has unrelenting pain where he is essentially incapacitated and has lay back down. The pain primarily over his right flank. Denies any radiating pain to his legs. Denies any weakness in his lower extremities. He denies any changes in bowel bladder function. He is voiding freely. He had a bowel movement yesterday. He's remained afebrile. Vital signs are stable. He has pain significantly over his right iliac crest. He is even spasm in the right paraspinals. His abdomen is soft nontender. He is able ambulate only a couple steps but is in obvious distress and has to immediately get back in bed. His 55 strength the dorsal to plantar flexion. EHL. No pain control x-ray patient presents. He is severe pain at his right iliac crest over the top. This. The paravertebral spasm. I again reviewed his computed tomography scan which did not show any obvious fracture. He has significant disc degeneration at multiple levels. Is unclear to see the severity of the stenosis or if there is new disc. Assessment and plan Continued right low back pain after shoveling and lifting, incapacitating pain despite conservative treatment No evidence of radiculopathy or lower extremity weakness I appreciate surgeries note and agree with gallbladder ultrasound for completeness sake. In the same vein and is difficult to fully determine the nature of the patient's symptoms. It does not follow specific spinal pattern. His pain continues to be unrelenting. He moves may be slightly better today but is still unable to mobilize with any purposful infective action in the room. I'll try to increase his steroid medication and also order further imaging with MRI to determine if there is something more severe in the area of stenosis in his lumbar spine. Awaiting pain management consultation as well
[2022-12-10] MEDS: CYCLOBENZAPRINE 5 MG TAB PO PRN (13:38)
[2022-12-10] MEDS: methylPREDNISolone SOD SUCCI 125 MG/2 ML VIAL IV SCH ×2 (13:38→20:56)
[2022-12-10] MEDS ORDERED: ALPRAZolam 0.25 MG TAB PO PRN (14:00)
--- NOTE | 2022-12-10 15:03 | US ---
EXAMINATION TYPE: US gallbladder DATE OF EXAM: 12/10/2022 COMPARISON: CT abdomen 12/08/2022. CLINICAL INDICATION: Male, 62 years old with history of Distended gallbladder on CAT scan, TECHNIQUE: Multiple sonographic images of the right upper quadrant are obtained. FINDINGS: EXAM MEASUREMENTS: Liver Length: 17.8 cm Gallbladder Wall: 0.3 cm CBD: 0.5 cm Right Kidney: 12.2 x 5.3 x 6.0 cm Pancreas: Obscured by bowel gas Liver: best seen intercostally. left lobe obscured. Gallbladder: no evidence of stones as visualized Evidence for sonographic Deleon's sign: no CBD: appears wnl Right Kidney: no evidence of hydronephrosis IMPRESSION: No evidence of acute process or gallbladder abnormality.
[2022-12-10] MEDS: ZOLPIDEM 5 MG TAB PO PRN (20:55)
--- NOTE | 2022-12-10 21:59 | P.PN ---
Subjective Progress Note Date: 12/10/22 This is a pleasant 62-year-old male who presented to the emergency department with severe back pain along with abdominal pain. Patient does not have a primary care provider and reports as a past medical history of musculoskeletal disorder with osteoarthritis, anxiety with a past medical history of laminectomy with decompression of L4-[address] Castillo about 10 years ago. Patient also reports to degenerative disc disease. Patient denies smoking and denies alcohol use and denies any illicit drug use. Patient reports he was having significant back pain that has progressively gotten worse making it difficult to ambulate. Patient reports he was shoveling a few weeks prior and also had recently been lifting heavy objects and the pain intensified. Patient reports he was at [facility] last week and received imaging and was sent home. Patient continued to have pain that had worsened and now reports unable to walk. Patient also reports difficulty with urinating due to the pain. Patient denies any loss of bowel or bladder incontinence. Patient also was having some abdominal pain most likely radiating from the back pain. Patient was admitted with orthopedic consultation as well as general surgery consultation. I have reviewed and within normal limits. 12/10/2022 Patient evaluated today ambulating in the room he is on able to walk about 75 feet before he experiences sharp stabbing pain along the mid right back. Patient has been started on high dose steroids by orthopedics and recommended to be evaluated by pain management. Patient states the steroids are making him agitated he did not sleep well last night and xanax was added. Physical therapy will also evalute the patient he may be a good candidate for outpatient physical therapy and this would need to be arranged by his PCP. Patient states his has set him up to see her PCP although he has not gone in for an appt yet he needs to establish care. He also continues on norco 5 q6 and IV toradol. A gallbladder ultrasound was done which is negative for evidence of acute process or gallbladder abnormality. Review of Systems Constitutional: Denied any fatigue denied any fever. Cardio vascular: denied any chest pain, palpitations Gastrointestinal: denied any nausea, vomiting, diarrhea Pulmonary: Denied any shortness of breath cough Neurologic denied any new focal deficits Reports back pain. All inpatient medications were reviewed and appropriate changes in these medications as dictated in the interval history and assessment and plan. PHYSICAL EXAMINATION: GENERAL: The patient is alert and oriented x4, Well developed, well nourished. Obese HEENT: Pupils are round and equally reacting to light. EOMI. no scleral icterus. No conjunctival pallor. Normocephalic, atraumatic. No pharyngeal erythema. No thyromegaly. CARDIOVASCULAR: S1 and S2 muffled PULMONARY: Breath sounds clear bilaterally to auscultation with no wheezing or rhonchi noted. ABDOMEN: soft. Nontender on exam. non-distended, normoactive bowel sounds. No palpable organomegaly. MUSCULOSKELETAL: No joint swelling or deformity. Significant pain in the lower back on palpation EXTREMITIES: No cyanosis, clubbing, or pedal edema. NEUROLOGICAL: Gross neurological examination did not reveal any focal deficits. Diffuse weakness SKIN: No rashes. Assessment: Acute lower back pain possibly secondary to muscle straining exacerbated by shoveling and lifting heavy objects History of degenerative disc disease History of osteoarthritis History of laminectomy of L4-5 approximately 10 years ago Abdominal pain, likely secondary to pain radiating from his back pain, denies nausea vomiting or diarrhea Obesity with a BMI of 30.1 GI prophylaxis DVT prophylaxis Full code Plan: Patient be seen and evaluated by orthopedics along with general surgery. General surgery Dr. 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 CT images were reviewed by surgery recommending no surgical intervention and patient being started on diet. Dr. Castillo evaluated the patient as he has past medical history of laminectomy of L4-5 over 10 years ago. No plans for surgical intervention at this time and patient being started on steroid taper along with pain management and patient will be evaluated by pain management provider Patient had indwelling Horvath catheter placed in the ER which will remove and monitor for any retention. PT/OT therapy consulted for evaluation Encouraged increased activity as tolerated Encouraged oral intake Continue with pain management and adjust the medications and limit the use of IV narcotics. Per nursing staff patient has been requesting IV Dilaudid [id number]. Patient states he does not want to be started on anything he can become addicted to. 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 He is pending evaluation by pain management. He is on bowel regimen. Continue GI and DVT prophylaxis The impression and plan of care has been dictated by Malissa Cohen, Nurse Practitioner as directed. Dr. Yohannes MD I have performed a history and physical examination and medical decision making of this patient, discussed the same with the dictator, and agree with the dictators assessment and plan as written, documented as a scribe. Based on total visit time, I have performed more than 50% of this visit. Objective - Vital Signs Vital signs: Vital Signs Temp 98.1 F 12/10/22 07:00 Pulse 60 12/10/22 07:00 Resp 18 12/10/22 07:00 BP 138/75 12/10/22 07:00 Pulse Ox 95 12/10/22 07:00 FiO2 Intake & Output 12/09/22 12/10/22 12/10/22 18:59 06:59 18:59 Intake Total 360 240 Output Total 1400 Balance -1040 240 Intake: Oral 360 240 Output: Urine 1400 Other: Voiding Method Indwelling Catheter Urinal Urinal # Voids 0 500 1 - Labs CBC & Chem 7: 12/09/22 05:21 12/09/22 05:21 Assessment and Plan Time with Patient: Less than 30
[2022-12-11] MEDS: SODIUM CHLORIDE 0.9% 1,000 ML IV SCH ×2 (06:32→18:50)
[2022-12-11] MEDS: SENNOSIDES 8.6 MG TAB PO SCH ×2 (08:31→21:27)
[2022-12-11] MEDS: methylPREDNISolone SOD SUCCI 125 MG/2 ML VIAL IV SCH ×2 (08:37→21:27)
[2022-12-11] MEDS: FAMOTIDINE 20 MG TAB PO SCH ×2 (08:38→21:27)
[2022-12-11] MEDS: ENOXAPARIN 40 MG/0.4 ML SYRINGE SQ SCH (08:38)
--- NOTE | 2022-12-11 08:58 | P.PN ---
Progress Note - Text Progress Note Date: 12/11/22 Orthopedic spine: History of present illness: Patient is a pleasant 62-year-old male who is seen and examined at bedside for further evaluation of his right thoracolumbar paraspinal pain radiating towards his right flank. He has had some improvement during his admission to the hospital but his pain continues to be significant. He is able to mobilize in the room today but states after a short period of ambulating to the door and back he gets a sharp pain over his right thoracolumbar spine. He continues to deny any lower extremity weakness or radiculopathy bilaterally. He states his symptoms have been ongoing over the past 2 weeks after he stepped up with his right lower extremity while carrying a heavy box. Patient states he does continue to require medication for pain control. He is currently on IV Dilaudid, oral hydrocodone, oral Flexeril, and IV Solu-Medrol. He is eating and voiding without difficulty. He does state while sitting to have a bowel movement his right side thoracolumbar pain is exacerbated. MRI imaging of the lumbar spine was ordered over the weekend. Nursing states this will not be performed today as they're currently for other MRIs are rescheduled for the patient. He will most likely be performed tomorrow. Consultation has also been placed with pain management who has not yet seen the patient. Patient did undergo gallbladder ultrasound yesterday without significant findings. He states this ultrasound was significantly painful. He has continued to utilize heat over his right thoracolumbar spine and does have some skin changes on the right. He is using a heating pad at the bedside currently. Physical exam: Patient is awake, alert, and oriented 3 Vital signs stable Good chest excursion with deep inspiration and expiration Abdomen soft nontender Examination of thoracic and lumbar spine reveals skin is intact with no abrasions, lacerations, or bruises; no purulence or signs of infection Dorsiflexion, plantarflexion, and extensor hallucis longus positive sustained bilaterally Lower extremity strength 5/5 bilaterally Patient is able to get out of bed and ambulate in the room without significant difficulty with me present Ambulating to the door back exacerbates right-sided thoracolumbar pain Active full range of motion of lower extremities without difficulty No signs or symptoms of DVT; no calf pain No pain with internal and external rotation of the hips bilaterally Neurovascularly intact Evidence of erythema ab-igne over the right thoracolumbar paraspinal muscles Evidence of well-healed incision at the mid lumbar spine Assessment: Acute right sided thoracolumbar paraspinal pain radiating towards the right flank Thoracolumbar myalgia History L4-5 laminectomy decompression in 2010 Abdominal pain Plan: 1. Patient has continued to experience significant right thoracolumbar paraspinal muscle pain radiating towards the right flank over the past 2 weeks. He states his symptoms started while stepping up on his right lower extremity while carrying a heavy box. He states he has had some improvement over the past 2 weeks but his symptoms continue be significant. He does have some chronic skin changes his right thoracolumbar spine prolonged use of a heating pad. He is using a heating pad at the bedside as well. He has difficulty with any sort of prolonged ambulation or activity as this exacerbates his pain. He is able to ambulate without significant difficulty in the room for me today to the door and back without doing so exacerbates his pain by the time he returns back to his bed. He is not currently experiencing lower extremity weakness or radiculopathy. His pain does not follow a specific radicular pattern regards to his spine. It is difficult to determine the full nature of the patient's symptoms. He has undergone CT imaging. MRI imaging could provide further information as to the severity of stenosis at his lumbar spine. Currently, MRI imaging of the lumbar spine has been ordered. This was placed over the weekend. Currently, there are multiple MRIs scheduled prior to his that will be performed today. I'm currently being told his MRI will not be performed until at least tomorrow, 12/12/2022. It was discussed with the patient we will plan to review this MRI in detail once it is completed in the imaging is available. Patient will continue with conservative treatment with medications at this time. He is currently also waiting for consultation with pain management. 2. Patient will continue be seeing him a multiple other medical providers including medicine and general surgery.
[2022-12-11] MEDS: HYDROcodone/APAP 5-325MG 1 EACH TAB PO PRN ×2 (12:31→21:27)
--- NOTE | 2022-12-11 13:04 | P.PN ---
Subjective Progress Note Date: 12/11/22 CHIEF COMPLAINT: Abdominal HISTORY OF PRESENT ILLNESS: Patient complains more of right-sided back and flank pain. Patient denies any nausea or vomiting. He is followed by orthopedic service had ordered a MRI of the lumbar spine. Gallbladder ultrasound shows no evidence for acute process or gallbladder abnormality. PHYSICAL EXAM: VITAL SIGNS: Reviewed. GENERAL: Well-developed in no acute distress. ABDOMEN: Soft. Nondistended. Nontender. No tenderness in the right upper quadrant NEUROLOGIC: Alert and oriented. Cranial nerves II through XII grossly intact. ASSESSMENT: 1. Right-sided back and flank pain. Patient denies any abdominal pain. Patient has no pain in the right upper quadrant. Gallbladder ultrasound was negative. Pain is likely musculoskeletal. PLAN: -Agree with orthopedic workup. Patient awaiting MRI of the lumbar spine -Continue supportive care -No surgical intervention planned from general surgical standpoint -Surgical service will sign off. Please call with any questions or concerns Physician Supervisor [employer] note has been reviewed by physician. Signing provider agrees with the documented findings, assessment, and plan of care. I have personally seen and examined the patient, reviewed the P[employer]CH [employer]TER /PAs history, exam and MDM and agree with the assessment and plan as written. Based on total visit time, I have performed more than 50% of the visit. As above: Patient still having back issues. Ultrasound gallbladder normal. We'll sign off at this time. Please call if needed. Objective - Vital Signs Vital signs: Vital Signs Temp 98 F 12/11/22 07:00 Pulse 63 12/11/22 07:00 Resp 18 12/11/22 07:00 BP 119/65 12/11/22 07:00 Pulse Ox 92 L 12/11/22 07:00 FiO2 Intake & Output 12/10/22 12/11/22 12/11/22 18:59 06:59 18:59 Intake Total 360 240 Balance 360 240 Intake: Oral 360 240 Other: Voiding Method Urinal Urinal # Voids 1 2 - Labs CBC & Chem 7: 12/09/22 05:21 12/09/22 05:21
--- NOTE | 2022-12-11 15:34 | P.PAINPG ---
Objective - Vital Signs Vital signs: Vital Signs Temp 98 F 12/11/22 07:00 Pulse 63 12/11/22 07:00 Resp 18 12/11/22 07:00 BP 119/65 12/11/22 07:00 Pulse Ox 92 L 12/11/22 07:00 FiO2 Intake & Output 12/10/22 12/11/22 12/11/22 18:59 06:59 18:59 Intake Total 360 240 Balance 360 240 Intake: Oral 360 240 Other: Voiding Method Urinal Urinal # Voids 1 2 - Labs CBC & Chem 7: 12/09/22 05:21 12/09/22 05:21 PQRS Measure Charge Sheet Comment: HISTORY OF PRESENT ILLNESS: 62 yr old male as a referral from Dr Castillo presents today w severe and chronic LBP secondary to post laminectomy syndrome for evaluation. Pt states pain level is provoked at 9/10 in intensity, constant, localized in the mid to lower lumbar spine, sharp in character w shooting pain towards the BLEs. Pain is provoked by any movement. Pt states he can't even walk to the door in his room without crouching down in pain. Pain is alleviated by medications, repositioning and rest. PMH: OA, Anxiety PSH: L4-L5 Laminectomy w Decompression (2011), R RCT Repair, Hand Surgery SH: Never smoker, 2nd Hand smoking from , No ETOH abuse, No illicit drug use FH: Mo- Breast CA. Fa- CVA, . Bro- OA. All: See list Meds: See list REVIEW OF ORGAN SYSTEMS: CONSTITUTIONAL: No fevers or chills. No recent weight loss. NEUROLOGICAL: + numbness and tingling along the distal extremities. No seizure disorders or headaches. MUSCULOSKELETAL: + pain PSYCHIATRIC: Denies current depression or suicidal thoughts. Physical Examinations : Constitutional : Cooperative , not in acute distress . Neurologic : Cranial nerve II to XII intact. No focal neurological deficits. Psychiatric : alert & oriented x 3. Matching mood & appropriate affect. Judgment & insight intact. Musculoskeletal : Cervical Spine Motor strength in the deltoid and biceps: Normal right side. Normal Left side Motor strength biceps and the wrist extensors: Normal right side . Normal left side Motor strength in the triceps muscle: Normal right side. Normal left side Deep tendon reflexes: Normal at the biceps. Normal at Brachioradialis. Normal at triceps Vertebral body tenderness to deep palpation over Cervical facet loading test: positive bilaterally Spurling test: positive bilaterally Neck distraction test: positive bilaterally Nirmal sign: positive bilaterally Lumbar spine Motor strength lower extremities ,thigh and legs 5/5 Right side , 5/5 Left side Deep tendon reflexes : Normal Knee Jerk. Normal Ankle Jerk Vertebral body tenderness over Maldonado Test positive Lumbar facet Loading Test: positive Right / positive Left Range of motion of the lumbar spine Flexion 30 degrees, extension 10 degrees Straight Leg Raise test: Left/ Right p ositive at degree Melissa test: positive right / positive left. Severe tenderness over the Sacroiliac joint on the Right / Left sides Gaenslen test: positive bilaterally Seated flexion test: positive bilaterally. Sacral spine : Severe tenderness over the Sacroiliac joint: right side / left side Range of motion: Flexion of the lumbar spine <60 degrees Range of motion: Extension of the lumbar spine <20 degrees Gaenslen's Test positive Abdoul's Test positive Melissa test: positive right side / left side Thigh Thrust Test Sacral Thrust Test Imaging: CT without contrast of the abdomen/ pelvis from 12/08/22 reviewed Assessment/ Plan : Lumbar post laminectomy syndrome Recommendation of MRI without contrast lumbar spine, results to be ready tomorrow. If [place] beneficial, will need to hold Lovenox x 1 d. Will follow up as needed. I have spent greater than 30 minutes on patient care today. Dr Damon was available by phone for the evaluation of this patient. The time was used to review the medical records including relevant urine studies and Prescription history (MAPs), review of the available imaging, evaluation and examination of the patient, coordination of care with the medical staff and if applicable referring physicians, as well as creation of the medical record - Pain Location Back Non-Pharmacological Interventions: Environmental Control, Inactivity, Position/Reposition, Reduce Environmental Stimuli, Relaxation Technique Pharmacological Interventions: PRN Medication Right Hip Non-Pharmacological Interventions: Darkened Room, Distraction, Emotional/Spiritual Support, Environmental Control Pharmacological Interventions: Discuss Pain Med Options Pain Comment: see MAR documentation. PQRS Narrative: Smoking Status Never smoker Blood Pressure [Right Arm] 119/65 Blood Pressure 127/83 Pain Intensity [Right Hip] 3 Pain Intensity [Back] 8 Pain Intensity 6 Pain Scale Used Numeric (1 - 10) Scale Used Numeric (1 - 10) Home Medications: Ambulatory Orders Meloxicam [Mobic] 15 mg PO DAILY 12/08/22 Testosterone Cypionate [Depo-Testosterone] 200 mg IM Q14D 12/08/22 Controlled Substance Measures - Controlled Substance Measures Is patient prescribed a controlled substance at discharge?: No
[2022-12-11] MEDS: ZOLPIDEM 5 MG TAB PO PRN (21:28)
[2022-12-11] MEDS: KETOROLAC 15 MG/ML 1 ML VIAL IVP PRN (21:55)
[2022-12-12] MEDS: SODIUM CHLORIDE 0.9% 1,000 ML IV SCH ×2 (03:48→16:56)
--- NOTE | 2022-12-12 06:32 | P.PN ---
Subjective Progress Note Date: 12/11/22 This is a pleasant 62-year-old male who presented to the emergency department with severe back pain along with abdominal pain. Patient does not have a primary care provider and reports as a past medical history of musculoskeletal disorder with osteoarthritis, anxiety with a past medical history of laminectomy with decompression of L4-[address] Castillo about 10 years ago. Patient also reports to degenerative disc disease. Patient denies smoking and denies alcohol use and denies any illicit drug use. Patient reports he was having significant back pain that has progressively gotten worse making it difficult to ambulate. Patient reports he was shoveling a few weeks prior and also had recently been lifting heavy objects and the pain intensified. Patient reports he was at [facility] last week and received imaging and was sent home. Patient continued to have pain that had worsened and now reports unable to walk. Patient also reports difficulty with urinating due to the pain. Patient denies any loss of bowel or bladder incontinence. Patient also was having some abdominal pain most likely radiating from the back pain. Patient was admitted with orthopedic consultation as well as general surgery consultation. I have reviewed and within normal limits. 12/10/2022 Patient evaluated today ambulating in the room he is on able to walk about 75 feet before he experiences sharp stabbing pain along the mid right back. Patient has been started on high dose steroids by orthopedics and recommended to be evaluated by pain management. Patient states the steroids are making him agitated he did not sleep well last night and xanax was added. Physical therapy will also evalute the patient he may be a good candidate for outpatient physical therapy and this would need to be arranged by his PCP. Patient states his has set him up to see her PCP although he has not gone in for an appt yet he needs to establish care. He also continues on norco 5 q6 and IV toradol. A gallbladder ultrasound was done which is negative for evidence of acute process or gallbladder abnormality. 12/11/2022 3 Patient is seen and evaluated in follow-up today currently awaiting an MRI which apparently per nursing staff is not being done until tomorrow. Orthopedics evaluating the patient awaiting an MRI maintained on large dose IV steroids currently awaiting a pain management consult. Patient reports has been up and walking continues to report pain but has improved. Patient is afebrile with no reports of chest pain or shortness of breath. Patient is tolerating diet. Encouraged increased activity as tolerated. Review of Systems Constitutional: Denied any fatigue denied any fever. Cardio vascular: denied any chest pain, palpitations Gastrointestinal: denied any nausea, vomiting, diarrhea Pulmonary: Denied any shortness of breath cough Neurologic denied any new focal deficits Reports back pain. All inpatient medications were reviewed and appropriate changes in these medications as dictated in the interval history and assessment and plan. PHYSICAL EXAMINATION: GENERAL: The patient is alert and oriented x4, Well developed, well nourished. Obese HEENT: Pupils are round and equally reacting to light. EOMI. no scleral icterus. No conjunctival pallor. Normocephalic, atraumatic. No pharyngeal erythema. No thyromegaly. CARDIOVASCULAR: S1 and S2 muffled PULMONARY: Breath sounds clear bilaterally to auscultation with no wheezing or rhonchi noted. ABDOMEN: soft. Nontender on exam. non-distended, normoactive bowel sounds. No palpable organomegaly. MUSCULOSKELETAL: No joint swelling or deformity. Significant pain in the lower back on palpation EXTREMITIES: No cyanosis, clubbing, or pedal edema. NEUROLOGICAL: Gross neurological examination did not reveal any focal deficits. Diffuse weakness SKIN: No rashes. Assessment: Acute lower back pain possibly secondary to muscle straining exacerbated by shoveling and lifting heavy objects History of degenerative disc disease History of osteoarthritis History of laminectomy of L4-5 approximately 10 years ago Abdominal pain, likely secondary to pain radiating from his back pain, denies na usea vomiting or diarrhea Obesity with a BMI of 30.1 GI prophylaxis DVT prophylaxis Full code Plan: Patient being evaluated by orthopedics along with general surgery. General surgery Dr. 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 CT images were reviewed by surgery recommending no surgical intervention and patient being started on diet. Dr. Castillo evaluated the patient as he has past medical history of laminectomy of L4-5 over 10 years ago. No plans for surgical intervention at this time and patient being started on steroid taper along with pain management and patient will be evaluated by pain management provider Patient had indwelling Horvath catheter placed in the ER which will remove and monitor for any retention. PT/OT therapy to evaluate Encouraged increased activity as tolerated Encouraged oral intake Continue with pain management and adjust the medications and limit the use of IV narcotics. Per nursing staff patient has been requesting IV Dilaudid [id number]. Patient states he does not want to be started on anything he can become addicted to. 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 He is pending evaluation by pain management. He is on bowel regimen. Continue GI and DVT prophylaxis and recommend SCDs and will hold Lovenox in the event patient may receive steroid injections per pain management Awaiting MRI which is scheduled for 12/12/2022 Possible discharge planning in the next 24 hours. The impression and plan of care has been dictated by Laura Mckeon, Nurse Practitioner as directed. Dr. Yohannes MD I have performed a history and examination and MDM of this patient, discussed the same with the dictator, and agree with the dictator's assessment and plan as written ,documented as a scribe. Based on total visit time, I have performed more than 50% of the visit. Objective - Vital Signs Vital signs: Vital Signs Temp 98 F 12/11/22 07:00 Pulse 63 12/11/22 07:00 Resp 18 12/11/22 07:00 BP 119/65 12/11/22 07:00 Pulse Ox 92 L 12/11/22 07:00 FiO2 Intake & Output 12/10/22 12/11/22 12/11/22 18:59 06:59 18:59 Intake Total 360 240 Balance 360 240 Intake: Oral 360 240 Other: Voiding Method Urinal Urinal # Voids 1 2 - Labs CBC & Chem 7: 12/09/22 05:21 12/09/22 05:21
--- NOTE | 2022-12-12 08:39 | P.PN ---
Progress Note - Text Progress Note Date: 12/12/22 Orthopedic spine: History of present illness: Patient is a pleasant 62-year-old male who is seen and examined at bedside for further evaluation of his right thoracolumbar paraspinal pain radiating towards his right flank. He has not had any change in his symptoms as compared to yesterday. He has had some improvement during his admission to the hospital but his pain continues to be significant. He is able to mobilize in the room today but states after a short period of ambulating to the door and back he gets a sharp pain over his right thoracolumbar spine. He continues to deny any lower extremity weakness or radiculopathy bilaterally. He states his symptoms have been ongoing over the past 2 weeks after he stepped up with his right lower extremity while carrying a heavy box. Patient states he does continue to require medication for pain control. He is currently on IV Dilaudid, oral hydrocodone, oral Flexeril, and IV Solu-Medrol. He is eating and voiding without difficulty. He does state while sitting to have a bowel movement his right side thoracolumbar pain is exacerbated. MRI imaging of the lumbar spine was ordered over the weekend. MRI is currently scheduled to be performed today at approximately 12:45 PM. He has been seen by pain management. Pain management would like to review his lumbar MRI. They may plan to proceed forward with an injection. They are requesting Lovenox be held for 1 day if they plan to proceed forward with an injection. Patient has been seen by general surgery. They do not have any plans for further treatment or evaluation and have signed off on the patient. He has continued to utilize heat over his right thoracolumbar spine and does have some skin changes on the right. He is using a heating pad at the bedside currently. Physical exam: Patient is awake, alert, and oriented 3 Vital signs stable Good chest excursion with deep inspiration and expiration Abdomen soft nontender Examination of thoracic and lumbar spine reveals skin is intact with no abrasions, lacerations, or bruises; no purulence or signs of infection Dorsiflexion, plantarflexion, and extensor hallucis longus positive sustained bilaterally Lower extremity strength 5/5 bilaterally Active full range of motion of lower extremities without difficulty No signs or symptoms of DVT; no calf pain No pain with internal and external rotation of the hips bilaterally Neurovascularly intact Evidence of erythema ab-igne over the right thoracolumbar paraspinal muscles Evidence of well-healed incision at the mid lumbar spine Assessment: Acute right sided thoracolumbar paraspinal pain radiating towards the right flank Thoracolumbar myalgia History L4-5 laminectomy decompression in 2010 Abdominal pain Plan: 1. Patient has continued to experience significant right thoracolumbar paraspinal muscle pain radiating towards the right flank over the past 2 weeks. He states his symptoms started while stepping up on his right lower extremity while carrying a heavy box. He states he has had some improvement over the past 2 weeks but his symptoms continue be significant. He does have some chronic skin changes his right thoracolumbar spine prolonged use of a heating pad. He is using a heating pad at the bedside as well. He has difficulty with any sort of prolonged ambulation or activity as this exacerbates his pain. He is able to ambulate without significant difficulty in the room for me today to the door and back without doing so exacerbates his pain by the time he returns back to his bed. He is not currently experiencing lower extremity weakness or radiculopathy. He is not having neurologic change in his lower extremities. His pain does not follow a specific radicular pattern regards to his spine. It is difficult to determine the full nature of the patient's symptoms. He has undergone CT imaging. MRI imaging could provide further information as to the severity of stenosis at his lumbar spine. Currently, MRI imaging of the lumbar spine has been ordered. This was placed over the weekend. Currently, his MRI is scheduled to be preformed today at approximately 12:45 PM. It was discussed with the patient we will plan to review this MRI in detail once it is completed in the imaging is available. Patient will continue with conservative treatment with medications at this time. We did discuss we are not currently planning for acute surgical intervention. He will continue with pain management evaluation. Pain management will plan to review his MRI and may plan to proceed forward with injections following reviewing of the imaging. Patient does state he would like to be discharged soon. We did discuss he does not have any neurologic compromise in his lower extremities. If cleared by ot er providers, he would be clear for discharge from an orthopedic spine standpoint. We will plan to have him follow-up in the outpatient setting in approximately 2-3 weeks for further evaluation. 2. Patient will continue to be seen and examined by medicine.
[2022-12-12] MEDS: HYDROcodone/APAP 5-325MG 1 EACH TAB PO PRN ×2 (08:43→14:58)
[2022-12-12] MEDS: SENNOSIDES 8.6 MG TAB PO SCH ×2 (08:44→21:16)
[2022-12-12] MEDS: FAMOTIDINE 20 MG TAB PO SCH ×2 (08:44→21:16)
[2022-12-12] MEDS: methylPREDNISolone SOD SUCCI 125 MG/2 ML VIAL IV SCH ×2 (08:45→21:16)
[2022-12-12] MEDS: KETOROLAC 15 MG/ML 1 ML VIAL IVP PRN ×2 (08:52→14:57)
[2022-12-12] MEDS: CYCLOBENZAPRINE 5 MG TAB PO PRN (08:59)
--- NOTE | 2022-12-12 09:31 | P.EN ---
Patient will require a walker on discharge to complete ADLs which is unable to be done as patient is having severe gait dysfunction secondary to right side thoracolumbar paraspinal myalgia with history of L4-5 laminectomy and decompression. Per schedule was provided to social work to obtain a walker prior to discharge.
[2022-12-12 11:20] LABS: Basophils # (A) 0.02 X 10*3/uL (0.00-0.10); Basophils % (A) 0.1 %; Eosinophils # (A) 0 X 10*3/uL (0.04-0.35); Eosinophils % (A) 0 %; HCT 45.9 % (39.6-50.0); HGB 15.3 d/dL (13.0-17.0); Lymphocytes # (A) 1.79 X 10*3/uL (0.90-5.00); Lymphocytes % (A) 11.9 %; MCH 30.2 pg (27.0-32.0); MCHC 33.3 d/dL (32.0-37.0); MCV 90.7 FL (80.0-97.0); Mean Platelet Volume 11.2 FL (9.5-12.2); Monocytes # (A) 0.64 X 10*3/uL (0.20-1.00); Monocytes % (A) 4.3 %; NRBC Per 100 WBC 0 X 10*3/uL (0.00-0.01); Neutrophils # (A) 12.47 X 10*3/uL (1.80-7.70); Neutrophils % (A) 82.9 %; Platelet Count 321 X 10*3/uL (140-440); RBC 5.06 X 10*6/uL (4.40-5.60); RDW 14.4 % (11.5-14.5); WBC 15.04 X 10*3/uL (4.50-10.00)
[2022-12-12 11:49] LABS: BUN/Creat Ratio 32.86 Ratio (12.00-20.00); Calcium 9.4 mg/dL (8.7-10.3); Carbon Dioxide 24.5 mmol/L (21.6-31.8); Chloride 102 mmol/L (96-109); Glucose 128 mg/dL (70-110); Potassium 4.6 mmol/L (3.5-5.5); Sodium 138 mmol/L (135-145)
--- NOTE | 2022-12-12 18:17 | MR ---
EXAMINATION TYPE: MR lumbar spine wo con DATE OF EXAM: 12/12/2022 COMPARISON: CT abdomen and pelvis December 08, 2022. Prior MRI lumbar spine June 13, 2010. HISTORY: Intractable low back pain, Rt flank pain TECHNIQUE: Multiplanar, multisequence imaging of the lumbar spine is performed without IV contrast. FINDINGS: Sagittal images of the lumbar spine show vertebral body heights to appear satisfactory. The re is grade 1 retrolisthesis L1 on L2. There is multilevel disc desiccation. There is moderate disc s pace narrowing and spurring with heterogeneous Modic type II endplate changes at L1-L2 at L5-S1 level s. Similar findings with moderate to advanced disc space narrowing at L4-L5 level is seen. The conus medullaris remains normal in position and signal ending at superior L2 level. Axial images at T12-L1 level shows mild broad-based disc bulge mildly effacing the anterior thecal sa c with right foraminal disc protrusion component causing moderate right-sided neural foraminal narrow ing. Axial images at L1-L2 level show spondylolisthesis with moderate broad disc bulge mildly effacing the anterior thecal sac and [id number] facet arthropathy bilaterally. Bilateral neural foramina ar e patent. Axial images at L2-L3 level shows mild broad-based posterior disc protrusion mildly effacing the ante rior thecal sac along with mild facet arthropathy bilaterally. Bilateral neural foramina are patent. Axial images at L3-L4 level mild broad-based posterior disc protrusion mildly facing anterior thecal sac with mild facet arthropathy bilaterally causing mild bilateral neural foraminal narrowing. Axial images at L4-L5 levels show mild to moderate broad disc bulge with right paracentral disc protr usion component effacing the anterior thecal sac along with mild/moderate facet arthropathy bilateral ly. There is mild/moderate bilateral neural foraminal narrowing noted. Axial images at L5-S1 level show mild/moderate broad disc bulge and moderate facet arthropathy bilate rally. There is mild effacement of the anterior thecal sac. There is mild bilateral inferior neural f oraminal narrowing. There is partial imaging of at least mildly distended bladder on current study. Paraspinal muscle bul k is preserved. IMPRESSION: Multilevel degenerative changes in the lumbar spine as detailed above.
[2022-12-12] MEDS: ZOLPIDEM 5 MG TAB PO PRN (21:16)
[2022-12-13] MEDS: HYDROcodone/APAP 5-325MG 1 EACH TAB PO PRN ×3 (01:17→20:31)
[2022-12-13] MEDS: SODIUM CHLORIDE 0.9% 1,000 ML IV SCH ×2 (04:44→17:12)
--- NOTE | 2022-12-13 06:04 | P.PN ---
Subjective Progress Note Date: 12/12/22 This is a pleasant 62-year-old male who presented to the emergency department with severe back pain along with abdominal pain. Patient does not have a primary care provider and reports as a past medical history of musculoskeletal disorder with osteoarthritis, anxiety with a past medical history of laminectomy with decompression of L4-[address] Castillo about 10 years ago. Patient also reports to degenerative disc disease. Patient denies smoking and denies alcohol use and denies any illicit drug use. Patient reports he was having significant back pain that has progressively gotten worse making it difficult to ambulate. Patient reports he was shoveling a few weeks prior and also had recently been lifting heavy objects and the pain intensified. Patient reports he was at [facility] last week and received imaging and was sent home. Patient continued to have pain that had worsened and now reports unable to walk. Patient also reports difficulty with urinating due to the pain. Patient denies any loss of bowel or bladder incontinence. Patient also was having some abdominal pain most likely radiating from the back pain. Patient was admitted with orthopedic consultation as well as general surgery consultation. I have reviewed and within normal limits. 12/10/2022 Patient evaluated today ambulating in the room he is on able to walk about 75 feet before he experiences sharp stabbing pain along the mid right back. Patient has been started on high dose steroids by orthopedics and recommended to be evaluated by pain management. Patient states the steroids are making him agitated he did not sleep well last night and xanax was added. Physical therapy will also evalute the patient he may be a good candidate for outpatient physical therapy and this would need to be arranged by his PCP. Patient states his has set him up to see her PCP although he has not gone in for an appt yet he needs to establish care. He also continues on norco 5 q6 and IV toradol. A gallbladder ultrasound was done which is negative for evidence of acute process or gallbladder abnormality. 12/11/2022 3 Patient is seen and evaluated in follow-up today currently awaiting an MRI which apparently per nursing staff is not being done until tomorrow. Orthopedics evaluating the patient awaiting an MRI maintained on large dose IV steroids currently awaiting a pain management consult. Patient reports has been up and walking continues to report pain but has improved. Patient is afebrile with no reports of chest pain or shortness of breath. Patient is tolerating diet. Encouraged increased activity as tolerated. 12/12/2092 Patient is seen in follow-up today awaiting an MRI which is scheduled for today around 1245.. Patient evaluated by orthopedics recommending conservative management and awaiting MRI as well. Patient was evaluated by pain management and would like to review the images and discuss possible epidural injection. Lovenox has been discontinued per pain management recommendations if patient were to receive an injection today. Patient continues to report pain and increased pain with ambulation of the lower back Review of Systems Constitutional: Denied any fatigue denied any fever. Cardio vascular: denied any chest pain, palpitations Gastrointestinal: denied any nausea, vomiting, diarrhea Pulmonary: Denied any shortness of breath cough Neurologic denied any new focal deficits Reports continued back pain. All inpatient medications were reviewed and appropriate changes in these medications as dictated in the interval history and assessment and plan. PHYSICAL EXAMINATION: GENERAL: The patient is alert and oriented x4, Well developed, well nourished. Obese HEENT: Pupils are round and equally reacting to light. EOMI. no scleral icterus. No conjunctival pallor. Normocephalic, atraumatic. No pharyngeal erythema. No thyromegaly. CARDIOVASCULAR: S1 and S2 muffled PULMONARY: Breath sounds clear bilaterally to auscultation with no wheezing or rhonchi noted. ABDOMEN: soft. Nontender on exam. non-distended, normoactive bowel sounds. No palpable organomegaly. MUSCULOSKELETAL: No joint swelling or deformity. Significant pain in the lower back on palpation EXTREMITIES: No cyanosis, clubbing, or pedal edema. NEUROLOGICAL: Gross neurological examination did not reveal any focal deficits. Diffuse weakness SKIN: No rashes. Assessment: Acute lower back pain possibly secondary to muscle straining exacerbated by rita veling and lifting heavy objects History of degenerative disc disease History of osteoarthritis History of laminectomy of L4-5 approximately 10 years ago Abdominal pain, likely secondary to pain radiating from his back pain, denies nausea vomiting or diarrhea Obesity with a BMI of 30.1 GI prophylaxis DVT prophylaxis Full code Plan: Patient being evaluated by orthopedics along with general surgery. General surgery Dr. 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 CT images were reviewed by surgery recommending no surgical intervention and patient has been started on diet and tolerating. Dr. Castillo evaluated the patient as he has past medical history of laminectomy of L4-5 over 10 years ago. No plans for surgical intervention at this time and patient being started on steroid taper along with pain management and patient will be evaluated by pain management provider. Awaiting MRI which is scheduled to occur later this afternoon Pain management discussing possible epidural injection of awaiting MRI results. Patient had indwelling Horvath catheter placed in the ER which will remove and monitor for any retention. PT/OT therapy to follow Encouraged increased activity as tolerated Encouraged oral intake Continue with pain management and adjust the medications and limit the use of IV narcotics. Patient states he does not want to be started on anything he can become addicted to. 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 He is on bowel regimen. Continue GI and DVT prophylaxis and recommend SCDs and will hold Lovenox in the event patient may receive steroid injections per pain management Awaiting MRI which was rescheduled for today due to multiple MRIs being ordered and pending throughout the hospital. Possible discharge planning in the next 24 hours. The impression and plan of care has been dictated by Laura Mckeon, Nurse Practitioner as directed. Dr. Yohannes MD I have performed a history and examination and MDM of this patient, discussed the same with the dictator, and agree with the dictator's assessment and plan as written ,documented as a scribe. Based on total visit time, I have performed more than 50% of the visit. Objective - Vital Signs Vital signs: Vital Signs Temp 98.1 F 12/12/22 07:32 Pulse 61 12/12/22 07:32 Resp 16 12/12/22 07:32 BP 109/58 12/12/22 07:32 Pulse Ox 94 L 12/12/22 07:32 FiO2 Intake & Output 12/11/22 12/12/22 12/12/22 18:59 06:59 18:59 Intake Total 600 Balance 600 Intake: Oral 600 Other: Voiding Method Toilet Urinal # Voids 2 2 - Labs CBC & Chem 7: 12/12/22 06:59 12/12/22 06:59
[2022-12-13] MEDS: SENNOSIDES 8.6 MG TAB PO SCH ×2 (07:56→20:31)
[2022-12-13] MEDS: FAMOTIDINE 20 MG TAB PO SCH ×2 (07:56→20:30)
[2022-12-13] MEDS: methylPREDNISolone SOD SUCCI 125 MG/2 ML VIAL IV SCH ×2 (07:56→20:30)
--- NOTE | 2022-12-13 13:22 | P.PN ---
Progress Note - Text Progress Note Date: 12/13/22 Orthopedic spine: History of present illness: Patient is a pleasant 62-year-old male who is seen and examined at bedside for further evaluation of his right thoracolumbar paraspinal pain radiating towards his right flank. Since being seen and examined yesterday, MRI imaging of the lumbar spine has been performed. He has not had follow-up evaluation with pain management following the completion of this MRI. He states his symptoms continue to be present but he has had improvement since yesterday. He is been able to ambulate up and down the hallways today. He was able to complete shaving in his room yesterday. Medicine is planning for discharge with a walker at the time of discharge. Patient does feel he has improved to where he could be discharged home today. He would like to discuss possibility of further injections with pain management. Pain management previously stated that he may plan to proceed forward with an injection. They are requesting Lovenox be held for 1 day if they plan to proceed forward with an injection. He continues to deny any lower extremity weakness or radiculopathy bilaterally. He states his symptoms have been ongoing over the past 2 weeks after he stepped up with his right lower extremity while carrying a heavy box. He is eating and voiding without difficulty. Patient has been seen by general surgery. They do not have any plans for further treatment or evaluation and have signed off on the patient. He has continued to utilize heat over his right thoracolumbar spine and does have some skin changes on the right. He states he chronically uses a heating pad. Patient was discussed with medicine today. They may plan to discharge him today as well. They state they have held his Lovenox in anticipation for possible injection with pain management. Physical exam: Patient is awake, alert, and oriented 3 Vital signs stable Good chest excursion with deep inspiration and expiration Abdomen soft nontender Examination of thoracic and lumbar spine reveals skin is intact with no abrasions, lacerations, or bruises; no purulence or signs of infection Dorsiflexion, plantarflexion, and extensor hallucis longus positive sustained bilaterally Lower extremity strength 5/5 bilaterally Active full range of motion of lower extremities without difficulty No signs or symptoms of DVT; no calf pain No pain with internal and external rotation of the hips bilaterally Neurovascularly intact Evidence of erythema ab-igne over the right thoracolumbar paraspinal muscles Evidence of well-healed incision at the mid lumbar spine Pertinent studies: MRI of the lumbar spine taken on 12/12/2022: T12-L1 right paracentral foraminal disc protrusion resulting in moderate right neural foraminal narrowing; disc desiccation and degenerative disc disease throughout the lumbar spine most significant at L4-5 and L5-S1; L1-2 slight retrolisthesis, disc bulge and facet arthropathy without significant stenosis; L2-3 slight disc bulge and facet arthropathy greater on the left than the right with central canal narrowing; L3- 4 disc bulge and facet arthropathy with central canal narrowing and bilateral foraminal narrowing; L4-5 significant degenerative disc disease, disc bulge, and facet arthropathy with central canal stenosis and bilateral foraminal stenosis; L5-S1 significant degenerative disc disease, left paracentral disc protrusion, f acet arthropathy with left foraminal stenosis Assessment: Acute right sided thoracolumbar paraspinal pain radiating towards the right flank Thoracolumbar myalgia History L4-5 laminectomy decompression in 2010 L4-5 and L5-S1 severe degenerative disc disease L1-2 slight retrolisthesis Lumbar facet arthropathy Lumbar multilevel degenerative disc disease and disc desiccation L4-5 central canal stenosis and foraminal stenosis L5-S1 left foraminal stenosis T12-L1 right moderate foraminal narrowing Abdominal pain Plan: 1. Patient has continued to experience significant right thoracolumbar paraspinal muscle pain radiating towards the right flank over the past 2 weeks. He states his symptoms started while stepping up on his right lower extremity while carrying a heavy box. He states he has had some improvement over the past 2 weeks and has had improvement of his symptoms as compared to yesterday. He has now been able to ambulate the hallways. He does feel his pain has improved to where he could be discharged home today. Medicine is planning to prescribe a walker at discharge. He does have some chronic skin changes his right thoracolumbar spine prolonged use of a heating pad. He is not currently experiencing lower extremity weakness or radiculopathy. He is not having neurologic change in his lower extremities. His pain does not follow a specific radicular pattern regards to his spine. It is difficult to determine the full nature of the patient's symptoms symptoms appear to be musculoskeletal in nature. He has had CT and MRI imaging. We have reviewed his MRI imaging. He does have multiple level degenerative change at his lumbar spine most significant at L4-5 and L5-S1. He does have some moderate right foraminal narrowing at T12-L1. Currently, we would recommend continuing conservative treatment options. He has had improvement with medication and time during his admission to the hospital. He states his symptoms have improved over the past couple weeks. We are not planning for acute surgical intervention as we do not feel there are good indications in which surgical intervention would provide significant improvement of his symptoms. He could continue with treatment evaluation with pain management. His Ravennox has been on hold per medicine. They may plan to proceed forward with an injection today. We did discuss he could benefit from trigger point injection or even possible epidural injection at the discretion of pain management. Currently, patient is clear for discharge from an orthopedic spine standpoint. They're planning for discharge home today. We'll plan to have him follow in the outpatient setting in approximately 2-3 weeks for further evaluation. He will take 3 tabs for 4 days, then take 2 tabs for 4 days, and then take 1 for 4 days. 2. Patient will continue to be seen and examined by medicine is planning for discharge today. I have been following him and reviewed the images including MRI. Patient has been making some progress with his mobility and ambulation and pain. He still has some pain in his right flank over his right iliac crest when he walks for more than a few minutes. I did not have plans for acute surgical intervention from a spine standpoint at this time. He should continue with conservative care and interventional pain management and follow-up on an outpatient basis in our service.
--- NOTE | 2022-12-13 19:14 | P.PN ---
Subjective Progress Note Date: 12/13/22 This is a pleasant 62-year-old male who presented to the emergency department with severe back pain along with abdominal pain. Patient does not have a primary care provider and reports as a past medical history of musculoskeletal disorder with osteoarthritis, anxiety with a past medical history of laminectomy with decompression of L4-[address] Castillo about 10 years ago. Patient also reports to degenerative disc disease. Patient denies smoking and denies alcohol use and denies any illicit drug use. Patient reports he was having significant back pain that has progressively gotten worse making it difficult to ambulate. Patient reports he was shoveling a few weeks prior and also had recently been lifting heavy objects and the pain intensified. Patient reports he was at [facility] last week and received imaging and was sent home. Patient continued to have pain that had worsened and now reports unable to walk. Patient also reports difficulty with urinating due to the pain. Patient denies any loss of bowel or bladder incontinence. Patient also was having some abdominal pain most likely radiating from the back pain. Patient was admitted with orthopedic consultation as well as general surgery consultation. I have reviewed and within normal limits. 12/10/2022 Patient evaluated today ambulating in the room he is on able to walk about 75 feet before he experiences sharp stabbing pain along the mid right back. Patient has been started on high dose steroids by orthopedics and recommended to be evaluated by pain management. Patient states the steroids are making him agitated he did not sleep well last night and xanax was added. Physical therapy will also evalute the patient he may be a good candidate for outpatient physical therapy and this would need to be arranged by his PCP. Patient states his has set him up to see her PCP although he has not gone in for an appt yet he needs to establish care. He also continues on norco 5 q6 and IV toradol. A gallbladder ultrasound was done which is negative for evidence of acute process or gallbladder abnormality. 12/11/2022 3 Patient is seen and evaluated in follow-up today currently awaiting an MRI which apparently per nursing staff is not being done until tomorrow. Orthopedics evaluating the patient awaiting an MRI maintained on large dose IV steroids currently awaiting a pain management consult. Patient reports has been up and walking continues to report pain but has improved. Patient is afebrile with no reports of chest pain or shortness of breath. Patient is tolerating diet. Encouraged increased activity as tolerated. 12/12/2022 Patient is seen in follow-up today awaiting an MRI which is scheduled for today around 1245.. Patient evaluated by orthopedics recommending conservative management and awaiting MRI as well. Patient was evaluated by pain management and would like to review the images and discuss possible epidural injection. Lovenox has been discontinued per pain management recommendations if patient were to receive an injection today. Patient continues to report pain and increased pain with ambulation of the lower back 12/13/2022 Patient is seen and evaluated in follow-up today continues to report pain and has been up walking around more often. Patient did have MRI and orthopedics following recommending continuing on IV steroids and pain management to follow- up with plans for steroid injections although unavailable until tomorrow morning. Patient will continue on current regimen and encouraged increased activity and continued walking multiple times throughout the day. Patient is afebrile with no reported chest pain or shortness of breath. Patient continues to endorse pain and has been using heating pads. Patient with no reported nausea or vomiting and is tolerating diet. Review of Systems Constitutional: Denied any fatigue denied any fever. Cardio vascular: denied any chest pain, palpitations Gastrointestinal: denied any nausea, vomiting, diarrhea Pulmonary: Denied any shortness of breath cough Neurologic denied any new focal deficits Reports continued back pain. All inpatient medications were reviewed and appropriate changes in these medications as dictated in the interval history and assessment and plan. PHYSICAL EXAMINATION: GENERAL: The patient is alert and oriented x4, Well developed, well nourished. Obese HEENT: Pupils are round and equally reacting to light. EOMI. no scleral icterus. No conjunctival pallor. Normocephalic, atraumatic. No pharyngeal erythema. No thyromegaly. CARDIOVASCULAR: S1 and S2 muffled PULMONARY: Breath sounds clear bilaterally to auscultation with no wheezing or rhonchi noted. ABDOMEN: soft. Nontender on exam. non-distended, normoactive bowel sounds. No palpable organomegaly. MUSCULOSKELETAL: No joint swelling or deformity. Significant pain in the lower back on palpation EXTREMITIES: No cyanosis, clubbing, or pedal edema. NEUROLOGICAL: Gross neurological examination did not reveal any focal deficits. Diffuse weakness SKIN: No rashes. Assessment: Acute lower back pain possibly secondary to muscle straining exacerbated by shoveling and lifting heavy objects History of degenerative disc disease History of osteoarthritis History of laminectomy of L4-5 approximately 10 years ago Abdominal pain, likely secondary to pain radiating from his back pain, denies nausea vomiting or diarrhea Obesity with a BMI of 30.1 GI prophylaxis DVT prophylaxis Full code Plan: Patient being evaluated by orthopedics along with general surgery. General surgery Dr. 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 CT images were reviewed by surgery recommending no surgical intervention and patient has been started on diet and tolerating. Dr. Castillo evaluated the patient as he has past medical history of laminectomy of L4-5 over 10 years ago. No plans for surgical intervention at this time and patient will continue on IV steroids and discharged with a prednisone taper with outpatient follow-up Pain management discussing possible epidural injection with no time available today and will undergo VALENTINA in the a.m. Encouraged increased activity as tolerated patient has been up and walking and reports feeling slightly improved with walking. Encouraged oral intake Patient is using a heating pad from home and discussed with him unsafe using and not sleeping with a heating pad Patient received VALENTINA tomorrow with pain management and will schedule for outpatient follow-up and discharge in 24 hours The impression and plan of care has been dictated by Nurse Darell Pra ctitioner as directed. Dr. Yohannes MD I have performed a history and examination and MDM of this patient, discussed the same with the dictator, and agree with the dictator's assessment and plan as written ,documented as a scribe. Based on total visit time, I have performed more than 50% of the visit. Objective - Vital Signs Vital signs: Vital Signs Temp 98.2 F 12/13/22 02:38 Pulse 71 12/13/22 02:38 Resp 16 12/13/22 02:38 BP 141/72 12/13/22 02:38 Pulse Ox 97 12/13/22 02:38 FiO2 Intake & Output 12/12/22 12/13/22 12/13/22 18:59 06:59 18:59 Other: Voiding Method Toilet Toilet Toilet Urinal Urinal Urinal # Voids 1 2 # Bowel Movements 1 - Labs CBC & Chem 7: 12/12/22 06:59 12/12/22 06:59 Labs: Abnormal Lab Results - Last 24 Hours (Table) 12/12/22 12/12/22 Range/Units 06:59 06:59 WBC 15.04 H (4.50-10.00) X 10*3/uL Neutrophils # 12.47 H (1.80-7.70) X 10*3/uL Eosinophils # 0 L (0.04-0.35) X 10*3/uL BUN/Creatinine Ratio 32.86 H (12.00-20.00) Ratio Glucose 128 H (70-110) mg/dL
[2022-12-13] MEDS: ZOLPIDEM 5 MG TAB PO PRN (21:03)
[2022-12-14 07:51] VITALS: PULSE 63
[2022-12-14] MEDS: SENNOSIDES 8.6 MG TAB PO SCH (08:39)
[2022-12-14] MEDS: FAMOTIDINE 20 MG TAB PO SCH (08:39)
[2022-12-14] MEDS: methylPREDNISolone SOD SUCCI 125 MG/2 ML VIAL IV SCH (08:39)
[2022-12-14] MEDS: HYDROcodone/APAP 5-325MG 1 EACH TAB PO PRN (08:42)
[2022-12-14] MEDS: SODIUM CHLORIDE 0.9% 1,000 ML IV SCH (10:22)
[2022-12-14 11:44] VITALS: BP 133/80; RESP 20; TEMP 97.2
[2022-12-14] MEDS ORDERED: LACTATED RINGERS 1,000 ML IV ONE (11:50)
[2022-12-14] MEDS ORDERED: MIDAZOLAM 2 MG/2 ML VIAL ONE (11:55)
[2022-12-14] MEDS ORDERED: IOPAMIDOL M200 10 ML VIAL ONE (11:55)
[2022-12-14] MEDS ORDERED: TRIAMCINOLONE ACETONIDE 40 MG/ML 1 ML VIAL ONE (11:55)
[2022-12-14] MEDS ORDERED: ROPIVACAINE 5MG/ML 20ML VIAL ONE (11:55)
[2022-12-14] MEDS ORDERED: fentaNYL (PF) 50 MCG/ML 2 ML AMP ONE (11:55)
[2022-12-14 11:58] LABS: Glucose,Whole Blood 119 mg/dL (70-110)
--- NOTE | 2022-12-14 12:07 | P.PCN ---
Date of Procedure: 12/14/22 Surgeon: Joe Johnson Pathology: none sent Condition: stable Disposition: PACU Description of Procedure: PREOPERATIVE DIAGNOSIS: 1-postlaminectomy pain syndrome 2- Lumber Degenerative Disc Diseases. POSTOPERATIVE DIAGNOSIS: 1-postlaminectomy pain syndrome 2-Lumbar Degenerative Disc Diseases PROCEDURE 1. Lumbar epidural steroid injection under fluoroscopic guidance at the L1-2 level in the right paramedian approach. 2. Lumbar epidurogram. ANESTHESIA: Local with 1% lidocaine and IV moderate conscious sedation with Versed and fentanyl EBL: Minimal PROCEDURE INDICATION: The patient with low back pain and radiculitis symptoms unresponsive to conservative treatment. Fluoroscopy was used to optimize visualization of the needle placement and to maximize safety. PROCEDURE DESCRIPTION / TECHNIQUE: The patient was seen and identified in the preoperative area. Risks, benefits, complications including but not limited to infections ,bleeding ,allergic reaction to the medications ,nerve damage and not complete pain relief , and alternatives were discussed with the patient. The patient agreed to proceed with the procedure and signed the consent. IV was started, and vital signs were stable. Patient was taken to the OR and time out was completed. The patient was placed in the prone position on procedure table and a pillow was placed under the abdomen to reduce lumbar lordosis. The lumbosacral area was prepped and draped in the usual sterile fashion with ChloraPrep.Patient was closely monitored during the procedure. Conscious sedation was used during the procedure to decr ease patients anxiety. Vital signs were monitered during the entire procedure. Using anterior-posterior fluoroscopy, the L1-2 interlaminar space was identified and the skin over this site was marked and then infiltrated with 1% lidocaine subcutaneously. Subsequently, a 20-gauge Tuohy epidural needle was inserted and advanced toward the epidural space using the Loss of resistance to air techni que and guided by AP and lateral fluoroscopy. The correct needle position in the epidural space was verified with the injection of 1 mL of the water soluble contrast dye Omnipaque 180 contrast and observing an excellent epidurogram with the epidural spread of the dye, after negative aspiration for blood and CSF and in the absence of paresthesias. Again after negative aspiration, a 8 ml mixture containing 40 mg of Kenalog and 5 ml of preservative free Normal Saline, and 2 ml of preservative free Ropivacaine 0.5% solution was injected and a washout of epidurogram was seen. Needle was withdrawn intact, skin was cleansed, and bandages were applied. patient tolerated procedure well and was transferred to PACU in stable condition.A copy of the needle placement picture was saved to the fluoroscopy machine. COMPLICATIONS: None DISPOSITION / PLANS: The patient was placed in a supine position and transferred to the recovery area in a stable condition for observation. There was no evidence of lower extremity motor or sensory deficit after the procedure. Patient was transferred back to his floor room in stable condition. Sedation time: 6901-4994
--- NOTE | 2022-12-14 15:50 | FL ---
EXAMINATION TYPE: FL guided pain mgmt statistic DATE OF EXAM: 12/14/2022 FLUOROSCOPY Lumbar Epid inj 10 sec fluoro time 0.[address] Johnson 2 images
--- NOTE | 2022-12-16 10:58 | P.DS ---
Providers Date of admission: 12/08/22 17:35 Expected date of discharge: 12/14/22 Attending physician: Nimo Sheffield Consults: 12/09/22 10:02 Consult Physician Urgent Consulting Provider: Catheirne Castillo Consult Reason/Comments: back pain Do you want consulting provider notified?: Yes Primary care physician: Stated None Hospital Course: Final diagnosis Acute lower back pain possibly secondary to muscle straining exacerbated by shoveling and lifting heavy objects status post epidural injection with pain management History of degenerative disc disease History of osteoarthritis History of laminectomy of L4-5 approximately 10 years ago Abdominal pain, likely secondary to pain radiating from his back pain, denies nausea vomiting or diarrhea improving Obesity with a BMI of 30.1 GI prophylaxis DVT prophylaxis Full code Discharge disposition Patient is being discharged in a stable condition with guarded prognosis to home. Patient will follow-up with primary care provider in the outpatient setting to establish along with close outpatient follow-up with orthopedics and pain management in the outpatient setting upon discharge. Patient is to continue with prednisone taper on discharge per orthopedics. Total time taken is greater than 35 minutes. Hospital course This is a 62-year-old male who was recently admitted with increasing lower back pain with inability to ambulate most likely secondary to a muscle straining. Patient seen and evaluated by orthopedics along with pain management underwent MRI showing degenerative disc disease with previous surgical history with no significant changes. Patient was on pain medications along with high-dose IV steroids and evaluated by pain management. Patient has history of drug addiction in the past pain medications and will follow with the pain management clinic. Patient is status post VALENTINA injections and has been cleared for discharge. Patient follow-up with orthopedics as well as pain management outpat ient and continue on a prednisone taper. Patient instructed to avoid any heavy lifting or pulling or shoveling until follow-up with consultations. Please refer to consultation notes for further HPI. Currently no reports of chest pain, shortness of breath, or palpitations. Patient is afebrile. No reports of nausea or vomiting and patient is tolerating diet. Patient will be discharged home today. Physical exam: Gen: This is a 62-year-old male who is awake, alert and oriented 3, well- developed, well-nourished, obese HEENT: Head is atraumatic, normocephalic. Pupils equal, round. Sclerae is anicteric. NECK: Supple. No JVD. No lymphadenopathy. No thyromegaly. LUNGS: Clear to auscultation. No wheezes or rhonchi. No intercostal retractions. HEART: Regular rate and rhythm. No murmur. ABDOMEN: Soft. Bowel sounds are present. No masses. No tenderness. EXTREMITIES: No pedal edema. No calf tenderness. NEUROLOGICAL: Patient is awake, alert and oriented x3. Cranial nerves 2 through 12 are grossly intact. Please refer to medication reconciliation sheet for a list of medications. The impression and plan of care has been dictated by Laura Mckeon, Nurse Practitioner as directed. Dr. Yohannse MD I have performed a history and examination and MDM of this patient, discussed the same with the dictator, and agree with the dictator's assessment and plan as written ,documented as a scribe. Based on total visit time, I have performed more than 50% of the visit. Patient Condition at Discharge: Stable Plan - Discharge Summary Discharge Rx Participant: No New Discharge Prescriptions: New predniSONE See Taper PO DIRECTED #24 tab Sennosides [Senokot] 8.6 mg PO BID 15 Days #30 tab HYDROcodone/APAP 5-325MG [[place] 5-325] 1 each PO Q6HR PRN #9 tab PRN Reason: Pain Famotidine [Pepcid] 20 mg PO BID 15 Days #30 tab Continue Meloxicam [Mobic] 15 mg PO DAILY Testosterone Cypionate [Depo-Testosterone] 200 mg IM Q14D Discharge Medication List Meloxicam [Mobic] 15 mg PO DAILY 12/08/22 [History] Testosterone Cypionate [Depo-Testosterone] 200 mg IM Q14D 12/08/22 [History] predniSONE See Taper PO DIRECTED #24 tab 12/13/22 [Rx] Famotidine [Pepcid] 20 mg PO BID 15 Days #30 tab 12/14/22 [Rx] HYDROcodone/APAP 5-325MG [[place] 5-325] 1 each PO Q6HR PRN #9 tab 12/14/22 [Rx] Sennosides [Senokot] 8.6 mg PO BID 15 Days #30 tab 12/14/22 [Rx] Follow up Appointment(s)/Referral(s): Fab Willett PAC [PHYSICIAN PROTECTIVE SIGNAL REPAIRER HELPER] - 3 Weeks (Patient may follow-up with Fab Willett PA-C or Dr. Delroy Castillo at [facility] in 2-3 weeks following discharge. ) Tad Damon MD [STAFF PHYSICIAN] - 1 Week [facility] [facility] [NON-STAFF] - 4 Weeks Patient Instructions/Handouts: Acute Low Back Pain (GEN), Chronic Back Pain (GEN), Degenerative Disc Disease (GEN), Lower Back Exercises (ED), Lower Back Exercises (GEN) Activity/Diet/Wound Care/Special Instructions: Activity Limited until follow-up Follow-up to establish with a primary care provider outpatient Follow-up with pain management Follow-up with orthopedics outpatient Continue medications as prescribed No heavy lifting or shoveling until cleared by orthopedics Discharge/Stand Alone Forms: PH Area PCPs Discharge Disposition: HOME SELF-CARE
== END 2022-12-14 13:25 | disposition home or self-care (01) | DRG 351 ==
LOC: EC 14:30 → 6NMEDSUR 17:35 → OBSVTOIN 17:35 → 6NMEDSUR 18:01
PROVIDERS: ADMIT Internal Medicine; ATTEND Internal Medicine
PROC: B01B1ZZ Fluoroscopy of Spinal Cord using Low Osmolar Contrast (ICD-10-PCS; principal; 2022-12-14 11:30)
PROC: 3E0R33Z Introduction of Anti-inflammatory into Spinal Canal, Percutaneous Approach (ICD-10-PCS; principal; 2022-12-14 11:30)
DX: S39.012A Strain of muscle, fascia and tendon of lower back, initial encounter (principal); E66.9 Obesity, unspecified; M46.00 Spinal enthesopathy, site unspecified; M79.18 Myalgia, other site; M96.1 Postlaminectomy syndrome, not elsewhere classified; M19.012 Primary osteoarthritis, left shoulder; M19.011 Primary osteoarthritis, right shoulder; M47.26 Other spondylosis with radiculopathy, lumbar region; M51.16 Intervertebral disc disorders with radiculopathy, lumbar region; M48.061 Spinal stenosis, lumbar region without neurogenic claudication; K82.8 Other specified diseases of gallbladder; Y83.8 Other surgical procedures as the cause of abnormal reaction of the patient, or of later complication, without mention of misadventure at the time of the procedure; Z77.22 Contact with and (suspected) exposure to environmental tobacco smoke (acute) (chronic); R19.00 Intra-abdominal and pelvic swelling, mass and lump, unspecified site; Y93.H1 Activity, digging, shoveling and raking; X50.0XXA Overexertion from strenuous movement or load, initial encounter; Z68.30 Body mass index [BMI] 30.0-30.9, adult; Z28.310 Unvaccinated for COVID-19; Z79.1 Long term (current) use of non-steroidal anti-inflammatories (NSAID); Z79.890 Hormone replacement therapy; Z88.1 Allergy status to other antibiotic agents; Z79.899 Other long term (current) drug therapy
CPT/HCPCS: 36415; 62323; 72148; 74177; 76705; 80048; 80053; 81001; 82150; 83605; 85025; 96361; 96374; 96376; 99152; 99285

== ENCOUNTER → 2023-01-04 | Outpatient (CLI) | payer OTHER ==
[2023-01-04 14:22] VITALS: BP 140/77; PULSE 77; RESP 16; TEMP 98.3
== END ==
LOC: PNWHC3 13:44
PROVIDERS: ATTEND Anesthesiology
DX: M47.816 Spondylosis without myelopathy or radiculopathy, lumbar region (principal); Z88.1 Allergy status to other antibiotic agents
CPT/HCPCS: 99211